=== PATIENT | male | born 1970 | race Caucasian/White ===

== ENCOUNTER 2016-08-10 23:37 | Emergency (ER) | payer OTHER ==
--- NOTE | ~2016-08-10 | CR72 ---
[facility] RADIOLOGY TEXT RESULTS PATIENT: KRISTIAN MOORE LOCATION: [facility] : 66 UNIT #: [id number] AGE: [address]: Bladimir Francis MD SEX: M ORDER DR: [id number] [facility] [address] [place], [place] [address] [id number] E MR#: [id number] Acc #: [id number] NAME: KRISTIAN MOORE. : 1970 SEX: M STUDY DATE/TIME: 08/11/2016 0:26 UNIT: [facility] ROOM: STUDY DESCRIPTION: CR Chest Single View Portable Attending Physician: Bladimir Francis M.D. Ordering Physician: Bladimir Francis M.D. Primary Care Physician: Primary Care Physician No MEDICAL IMAGING REPORT This report is preliminary unless electronic signature is present EXAM Chest x-ray 08/11/2016 HISTORY 45-year-old male in the ED complaining of 2-day history of left side chest pain, shortness of air and dizziness. Cough. TECHNIQUE AP portable chest x-ray. FINDINGS There was a small ill-defined nodular opacity in the right upper lobe. There was also marked enlargement of the right hilum and mild widening of the right mediastinal border above the hilum. The findings are concerning for thoracic adenopathy and possible right upper lobe lesion. CT examination of the chest with IV contrast is recommended for further evaluation. Lungs otherwise clear. Heart size normal. IMPRESSION 1. Findings concerning for right hilar and right middle mediastinal adenopathy and a possible right upper lobe pulmonary lesion. These findings are new since 04/12/2015. Recommend chest CT for further evaluation. Dictated by... Otf Macario M.D. THIS IS AN ELECTRONICALLY VERIFIED REPORT Otf Macario M.D. at 08/11/2016 9:55 PM RGW/to [facility] A [facility] RADIOLOGY TEXT RESULTS PATIENT: KRISTIAN MOORE LOCATION: [facility] : 66 UNIT #: [id number] AGE: [address]: Bladimir Francis MD SEX: M ORDER DR: TD: 08/11/2016 10:25 JOB #: [id number] MEDICAL IMAGING REPORT Page 1 of 1 COPY
--- NOTE | ~2016-08-10 | EKG ---
PATIENT: KRISTIAN MOORE UNIT #: [id number] Ventricular Rate: 97 BPM Atrial Rate: 97 BPM P-R Interval: 112 ms QRS Duration: 86 ms Q-T Interval: 336 ms QTC Calculation(Bezet): 426 ms P Erie: 59 degrees Calculated R Erie: 59 degrees Calculated T Erie: 72 degrees Diagnosis Line: Normal sinus rhythm Diagnosis Line: Normal ECG Diagnosis Line: No previous ECGs available Diagnosis Line: Confirmed by ANATOLIY RAMOS MD ([id number]) on Diagnosis Line: 08/11/2016 10:15:59 PM INTERPRETING MD: ASHER
--- NOTE | ~2016-08-10 | CT16 ---
[facility] A [facility] RADIOLOGY TEXT RESULTS PATIENT: KRISTIAN MOORE LOCATION: [facility] : 66 UNIT #: [id number] AGE: [address]: Bladimir Francis MD SEX: M ORDER DR: [id number] [facility] [address] [place], [place] [address] [id number] E MR#: [id number] Acc #: [id number] NAME: KRISTIAN MOORE. : 1970 SEX: M STUDY DATE/TIME: 08/11/2016 2:08 UNIT: [facility] ROOM: STUDY DESCRIPTION: CT Angio Chest for PE Attending Physician: Bladimir Francis M.D. Ordering Physician: Bladimir Francis M.D. Primary Care Physician: Primary Care Physician No MEDICAL IMAGING REPORT This report is preliminary unless electronic signature is present EXAM CT chest with contrast, pulmonary arteriography protocol, 08/11/2016 HISTORY 45-year-old male in the ED complaining of 2-day history of left side chest pain with shortness of air and cough. Abnormal chest x-ray tonight showing evidence of mediastinal and right hilar adenopathy and a right upper lobe nodular lesion. TECHNIQUE CT examination of the chest was performed with IV contrast using pulmonary arteriography protocol. 3-D CTA images of the pulmonary arteries were reformatted in multiple planes. This CT exam was performed with one or more of the following radiation dose reduction techniques: automatic exposure control, adjustment of mA and/or kV according to patient size, and iterative reconstruction. FINDINGS No pulmonary embolism is demonstrated. Thoracic aorta is normal in caliber. There is a 1.7 cm, oblong, well-circumscribed nodular opacity in the anterior segment right upper lobe. No additional pulmonary lesion is seen elsewhere within either lung. Bulky adenopathy is present in the right upper hilum and pretracheal middle mediastinum. The right upper hilar mass measures up to 4.5 cm. Largest upper pretracheal node measures about 2.6 cm, and the largest precarinal node measures about 2.4 cm. The consolation of findings is concerning for pulmonary malignancy with thoracic lymph node metastasis. There was no contralateral left hilar adenopathy. There was no pleural effusion. No chest wall lesion is seen. [facility] A [facility] of [facility] RADIOLOGY TEXT RESULTS PATIENT: KRISTIAN MOORE LOCATION: [facility] : 66 UNIT #: [id number] AGE: [address]: Bladimir Francis MD SEX: M ORDER DR: Limited images through the uppermost abdomen are unremarkable. IMPRESSION 1. No evidence of pulmonary embolism. Normal-caliber thoracic aorta. 2. 1.6 cm nodular lesion in the anterior segment right upper lobe. Bulky adenopathy in the right upper hilum and pretracheal middle mediastinum as detailed above. Pulmonary malignancy with thoracic lymph node metastasis is likely. 3. The remainder of the examination is negative. Dictated by... Otf Macario M.D. THIS IS AN ELECTRONICALLY VERIFIED REPORT Otf Macario M.D. at 08/11/2016 9:56 PM RGW/bruno TD: 08/11/2016 12:41 JOB #: [id number] MEDICAL IMAGING REPORT Page 1 of 1 COPY
[~2016-08-10 23:37] MED LIST: ACETAMINOPHEN PO; ACETAMINOPHEN650 M1 PO; ASPIR-TRIN325 MG PO; ASPIRIN325 M1 PO; ASPIRIN81 M1 PO; ASPIRINEC PO; ATENOLOL50 MG PO; BACTRIM DS TABL1 TA1 PO; BACTRIM DS TABL1 TAB PO; BAYER ASPIRIN325 M1 PO; BENTYL10 MG PO; BENTYL20 MG PO; CELEXA PO; CIPRO PO; COUMADIN7.5 MG PO; DICYCLOMINE HCL20 MG PO; FLAGYL PO; FLEXERIL PO; FLEXERIL10 MG PO; HCTZ PO; HYDROCODONE-APA1 T30 PO; K-DUR10 MEQ PO; KEFLEX500 MG PO; LEVAQUIN PO; LISINOPRIL10 MG PO; LISINOPRIL5 MG PO; LOMOTIL TABLET1 TAB PO; LORTAB 10-3251 EACH PO; LORTAB 10-5001 EACH PO; LORTAB 10/500 T1 TAB PO; LORTAB 5/500 TA1 TA1 PO; MEDROL DOSEPAK4 MG DOB; MEDROL DOSEPAK4 MG PO; MEDROL4 MG/DOSE- PO; METHIMAZOLE10 MG PO; METHIMAZOLE5 MG PO; METOPROLOL SUCC25 MG PO; METOPROLOL TAR25 MG PO; NAPROSYN500 MG PO; NEXIUM PO; NO MEDICATIONS; NORCO 10-325 TA1 TAB PO; OMEPRAZOLE40 MG PO; ORUDIS75 M1 PO; PEPCID AC20 M2 PO; PERCOCET 10/3251 TAB PO; PHENERGAN PO; PHENERGAN25 MG PO; PREDNISONE10 MG/DOSE PO; PRILOSEC PO; PRILOSEC20 MG PO; PRINIVIL5 MG PO; PROAIR HFA8.5 GM IH; PROPRANOLOL HCL10 MG PO; ROBAXIN500 MG PO; TAPAZOLE5 MG PO; TEMAZEPAM PO; ULTRAM PO; VICODIN 5/1 TAB 5/50 PO; VICODIN 5/500 T1 TAB PO; VOLTAREN50 MG PO; VOLTAREN75 MG PO; ZITHROMAX500 MG PO; ZOFRAN ODT4 MG SL; ZOFRAN PO; ZOLOFT PO; ZOLOFT100 MG PO; ZOLOFT50 MG PO
[2016-08-11 01:15] LABS: BASOPHIL# 0.1 X10e3 (0-0.3); BASOPHIL% 0.6 % (0-2.5); DIFF IND NO; EOSINOPHIL# 0.3 X10e3 (0-0.7); EOSINOPHIL% 3.5 % (0.0-7.0); HEMATOCRIT 43.7 % (38.0-50.0); HEMOGLOBIN 14.7 gm/dL (13.0-16.0); LYMPHOCYTE# 2.6 X10e3 (1.0-3.5); LYMPHOCYTE% 32.3 % (17.0-45.0); MEAN CELL VOLUME 90.8 FL (83-96); MEAN CORPUSCULAR HEMOGLOBIN 30.6 PG (28-34); MEAN CORPUSCULAR HGB CONC 33.7 g/dL (30-36); MEAN PLATELET VOLUME 8.4 FL (6.5-11.5); MONOCYTE# 0.5 X10e3 (0-1.0); MONOCYTE% 6.8 % (3.0-12.0); NEUTROPHIL# 4.6 X10e3 (1.5-7.1); NEUTROPHIL% 56.8 % (40-75); PLATELET COUNT 243 X10e3 (140-420); RED BLOOD COUNT 4.81 X10e (3.90-5.60); RED CELL DISTRIBUTION WIDTH 12.8 % (11.0-15.5); WHITE BLOOD COUNT 8.1 X10e3 (4.0-10.5)
[2016-08-11 01:21] LABS: POC - CKMB <1.0 ng/mL (0.0-7.9); POC - TROPONIN <0.05 ng/mL (<=0.05)
[2016-08-11 01:25] LABS: AMPHETAMINE POS (NEG); BARBITURATES NEG (NEG); BENZODIAZEPINES NEG (NEG); COCAINE NEG (NEG); MARIJUANA NEG (NEG); OPIATES NEG (NEG); TRICYCLIC ANTIDEPRESSANTS NEG (NEG); U METHADONE NEG (NEG)
[2016-08-11 01:30] LABS: INR 0.9; PARTIAL THROMBOPLASTIN TIME 24.3 SECONDS (23.5-31.3); PROTHROMBIN TIME (PATIENT) 9.5 SECONDS (9.6-11.5)
[2016-08-11 01:58] LABS: ALBUMIN SERUM 4.2 g/dL (3.5-5.0); BILIRUBIN, DIRECT 0.1 mg/dL (0.0-0.2); BILIRUBIN,INDIRECT 0.9 mg/dL (0.0-0.9); CALCIUM SERUM 9.2 mg/dL (8.4-10.2); CREATININE SERUM 0.5 mg/dL (0.6-1.4); GLOM FILT RATE Estimated 129.1 mL/min (>60); POTASSIUM 4.4 mmol/L (3.5-5.1); PROTEIN TOTAL SERUM 7.1 g/dL (6.0-8.3)
[2016-08-11 02:50] LABS: POC - CKMB 1.3 ng/mL (0.0-7.9); POC - TROPONIN <0.05 ng/mL (<=0.05)
[2016-09-03] MEDS ORDERED: ZOLOFT50 MG PO (11:30)
[2016-09-03] MEDS ORDERED: DICYCLOMINE HCL20 MG PO (11:31)
[2016-09-03] MEDS ORDERED: VOLTAREN75 MG PO (11:31)
[2016-09-03] MEDS ORDERED: METRONIDAZOLE PO (11:32)
[2016-09-03] MEDS ORDERED: OMEPRAZOLE20 M1 PO (11:33)
[2016-09-03] MEDS ORDERED: LEVAQUIN750 MG PO (11:33)
[2016-09-03] MEDS ORDERED: AMITRIPTYLINE H25 MG PO (11:34)
[2016-09-03] MEDS ORDERED: OXYCODONE-ACET1 EAC1 PO (11:44)
[2016-11-27] MEDS ORDERED: PERCOCET10 PO ×2 (09:14→09:16)
[2016-12-02] MEDS ORDERED: ATIVAN PO (12:22)
[2016-12-02] MEDS ORDERED: CARAFATE1 GM PO (12:22)
[2016-12-02] MEDS ORDERED: PROTONIX PO (12:22)
== END 2016-08-11 03:35 | disposition home or self-care (01) ==
LOC: CED 23:37
PROVIDERS: Emergency Medicine
DX: R07.89 Other chest pain (principal); R91.8 Other nonspecific abnormal finding of lung field; I10 Essential (primary) hypertension; F17.200 Nicotine dependence, unspecified, uncomplicated; Z79.01 Long term (current) use of anticoagulants; Z79.899 Other long term (current) drug therapy
CPT/HCPCS: 36415; 71010; 71275; 80048; 80076; 80307; 82553; 83880; 84484; 85025; 85610; 85730; 93005; 96361; 96374; 99284; J2550; Q9967

== ENCOUNTER 2016-08-18 21:51 | Emergency (ER) | payer OTHER ==
--- NOTE | ~2016-08-18 | EKG ---
PATIENT: KRISTIAN MOORE UNIT #: [id number] Ventricular Rate: 110 BPM Atrial Rate: 110 BPM P-R Interval: 112 ms QRS Duration: 86 ms Q-T Interval: 320 ms QTC Calculation(Bezet): 433 ms P Media: 62 degrees Calculated R Media: 60 degrees Calculated T Media: 67 degrees Diagnosis Line: Sinus tachycardia Diagnosis Line: Possible Left atrial enlargement Diagnosis Line: Borderline ECG Diagnosis Line: When compared with ECG of 10-AUG-2016 23:48, Diagnosis Line: No significant change was found Diagnosis Line: Confirmed by ANATOLIY RAMOS MD ([id number]) on Diagnosis Line: 08/19/2016 5:48:59 PM INTERPRETING MD: ASHER
--- NOTE | ~2016-08-18 | CR72 ---
[facility] A Service of [facility] RADIOLOGY TEXT RESULTS PATIENT: KRISTIAN MOORE LOCATION: [facility] : 66 UNIT #: [id number] AGE: [address]: Reynaldo Xiong MD SEX: M ORDER DR: [id number] [facility] [address] [place], [place] [address] [id number] E MR#: [id number] Acc #: [id number] NAME: KRISTIAN MOORE. : 1970 SEX: M STUDY DATE/TIME: 08/18/2016 22:42 UNIT: [facility] ROOM: STUDY DESCRIPTION: CR Chest Single View Portable Attending Physician: Reynaldo Xiong M.D. Ordering Physician: Reynaldo Xiong M.D. Primary Care Physician: No Primary Care Physician MEDICAL IMAGING REPORT This report is preliminary unless electronic signature is present EXAM Portable chest 08/18/2016 HISTORY Chest pain and dizziness for 3 days with shortness of air. Symptoms are worsening. COMPARISON 08/11/2016 FINDINGS A portable view of the chest is obtained. The heart size and vascularity are normal. The right hilum is abnormally prominent with an area measuring at least 3.7 cm in diameter in that region. There is a possible right upper lobe nodule or mass measuring 2 cm in diameter. The patient had a CT chest just a week ago which showed adenopathy in the right hilum and a right upper lobe mass was noted. IMPRESSION The right upper lobe mass and right hilar enlargement due to adenopathy is unchanged from the recent studies from last week including a chest CT. There is no infiltrate visible. Dictated by... Feliz Harmon M.D. THIS IS AN ELECTRONICALLY VERIFIED REPORT Feliz Harmon M.D. at 08/19/2016 12:39 PM FEL/fahad [facility] A Service of [facility] RADIOLOGY TEXT RESULTS PATIENT: KRISTIAN MOORE LOCATION: [facility] : 66 UNIT #: [id number] AGE: [address]: Reynaldo Xiong MD SEX: M ORDER DR: TD: 08/19/2016 09:27 JOB #: [id number] MEDICAL IMAGING REPORT Page 1 of 1 COPY
--- NOTE | ~2016-08-18 | CT16 ---
[facility] A Service of [facility] & [facility] RADIOLOGY TEXT RESULTS PATIENT: KRISTIAN MOORE LOCATION: [facility] : 66 UNIT #: [id number] AGE: [address]: Reynaldo Xiong MD SEX: M ORDER DR: [id number] [facility] [address] [place], [place] [address] [id number] E MR#: [id number] Acc #: [id number] NAME: KRISTIAN MOORE. : 1970 SEX: M STUDY DATE/TIME: 08/19/2016 0:14 UNIT: [facility] ROOM: STUDY DESCRIPTION: CT Angio Chest for PE Attending Physician: Reynaldo Xiong M.D. Ordering Physician: Reynaldo Xiong M.D. Primary Care Physician: No Primary Care Physician MEDICAL IMAGING REPORT This report is preliminary unless electronic signature is present EXAM CT scan of the chest with pulmonary embolus protocol. HISTORY Shortness of air and chest pain for 3 days. New diagnosis of lung cancer. COMPARISON 08/11/2016 TECHNIQUE The patient was given 100 mL of Isovue-370 and spiral imaging was performed through the chest. 3-D reconstructions of the pulmonary arteries were generated. This CT exam was performed with one or more of the following radiation dose reduction techniques: automatic exposure control, adjustment of mA and/or kV according to patient size, and iterative reconstruction. FINDINGS The visualized thyroid gland is normal. The aorta is normal in size and there is no dissection. There is no visible pulmonary embolus. There is a right upper lobe mass measuring 1.4 cm in diameter with bulky mediastinum and hilar adenopathy. The right hilar adenopathy is 4.6 cm in diameter. There is right pretracheal node measuring 3.9 cm in diameter and there is a right paratracheal node measuring 3.0 cm in diameter. The visualized portions of the upper abdomen are normal. The rest of the lungs are clear. IMPRESSION 1. No CT evidence of pulmonary embolus. 2. No change in the 14 mm right upper lobe mass with large adenopathy in the right paratracheal region and right hilar region consistent with STS. [facility] A Service of [facility] & [facility] RADIOLOGY TEXT RESULTS PATIENT: KRISTIAN MOORE LOCATION: [facility] : [birth year] UNIT #: [id number] AGE: [address]: Reynaldo Xiong MD SEX: M ORDER DR: lung cancer. 3. The lungs are otherwise clear. Dictated by... Feliz Harmon M.D. THIS IS AN ELECTRONICALLY VERIFIED REPORT Feliz Harmon M.D. at 08/19/2016 12:38 PM CHAR/bahman TD: 08/19/2016 09:39 JOB #: [id number] MEDICAL IMAGING REPORT Page 1 of 1 COPY
[2016-08-18 23:24] LABS: BASOPHIL# 0.1 X10e3 (0-0.3); BASOPHIL% 0.6 % (0-2.5); EOSINOPHIL# 0.3 X10e3 (0-0.7); EOSINOPHIL% 3.1 % (0.0-7.0); HEMATOCRIT 44.2 % (38.0-50.0); HEMOGLOBIN 14.6 gm/dL (13.0-16.0); LYMPHOCYTE# 2.7 X10e3 (1.0-3.5); LYMPHOCYTE% 30.6 % (17.0-45.0); MEAN CELL VOLUME 90.2 FL (83-96); MEAN CORPUSCULAR HEMOGLOBIN 29.8 PG (28-34); MEAN CORPUSCULAR HGB CONC 33.1 g/dL (30-36); MEAN PLATELET VOLUME 8.7 FL (6.5-11.5); MONOCYTE# 0.6 X10e3 (0-1.0); MONOCYTE% 6.7 % (3.0-12.0); NEUTROPHIL# 5.3 X10e3 (1.5-7.1); PLATELET COUNT 277 X10e3 (140-420); RED CELL DISTRIBUTION WIDTH 12.8 % (11.0-15.5); WHITE BLOOD COUNT 8.9 X10e3 (4.0-10.5)
[2016-08-18 23:26] LABS: POC - CKMB 1.4 ng/mL (0.0-7.9); POC - TROPONIN <0.05 ng/mL (<=0.05)
[2016-08-18 23:27] LABS: DIFF IND NO
[2016-08-18 23:38] LABS: INR 0.9; PROTHROMBIN TIME (PATIENT) 9.6 SECONDS (9.6-11.5)
[2016-08-18 23:45] LABS: ALBUMIN SERUM 4.1 g/dL (3.5-5.0); ALKALINE PHOSPHATASE 74 U/L (32-92); ALT (SGPT) 32 U/L (10-40); AST (SGOT) 24 U/L (10-42); BILIRUBIN,TOTAL 0.6 mg/dL (0.2-2.0); BLOOD UREA NITROGEN 17 mg/dL (9-23); BUN/CREATININE RATIO 21.25; CALCIUM SERUM 9.2 mg/dL (8.4-10.2); CARBON DIOXIDE 23 mmol/L (22-31); CHLORIDE 108 mmol/L (100-111); CREATININE SERUM 0.8 mg/dL (0.6-1.4); GLOM FILT RATE Estimated 106.4 mL/min (>60); GLUCOSE FASTING 107 mg/dL (70-110); POTASSIUM 3.6 mmol/L (3.5-5.1); SODIUM 137 mmol/L (135-145)
[2016-08-18 23:46] LABS: BILIRUBIN, DIRECT <0.1 mg/dL (0.0-0.2); BILIRUBIN,INDIRECT 0.5 mg/dL (0.0-0.9)
[2016-08-19 01:38] LABS: POC - CKMB <1.0 ng/mL (0.0-7.9); POC - TROPONIN <0.05 ng/mL (<=0.05)
[2016-09-03] MEDS ORDERED: ZOLOFT50 MG PO (11:30)
[2016-09-03] MEDS ORDERED: DICYCLOMINE HCL20 MG PO (11:31)
[2016-09-03] MEDS ORDERED: VOLTAREN75 MG PO (11:31)
[2016-09-03] MEDS ORDERED: METRONIDAZOLE PO (11:32)
[2016-09-03] MEDS ORDERED: OMEPRAZOLE20 M1 PO (11:33)
[2016-09-03] MEDS ORDERED: LEVAQUIN750 MG PO (11:33)
[2016-09-03] MEDS ORDERED: AMITRIPTYLINE H25 MG PO (11:34)
[2016-09-03] MEDS ORDERED: OXYCODONE-ACET1 EAC1 PO (11:44)
[2016-11-27] MEDS ORDERED: PERCOCET10 PO ×2 (09:14→09:16)
[2016-12-02] MEDS ORDERED: ATIVAN PO (12:22)
[2016-12-02] MEDS ORDERED: CARAFATE1 GM PO (12:22)
[2016-12-02] MEDS ORDERED: PROTONIX PO (12:22)
== END 2016-08-19 02:08 | disposition home or self-care (01) ==
LOC: CED 21:51
PROVIDERS: Emergency Medicine
DX: J44.1 Chronic obstructive pulmonary disease with (acute) exacerbation (principal); C34.90 Malignant neoplasm of unspecified part of unspecified bronchus or lung; K21.9 Gastro-esophageal reflux disease without esophagitis; F32.9 Major depressive disorder, single episode, unspecified; F17.210 Nicotine dependence, cigarettes, uncomplicated; Z79.01 Long term (current) use of anticoagulants; Z79.899 Other long term (current) drug therapy
CPT/HCPCS: 36415; 71010; 71275; 80048; 80076; 82553; 83880; 84484; 85025; 85610; 87040; 93005; 94640; 96374; 99285; J1170; J2270; J2405; Q9967

== ENCOUNTER 2016-08-29 12:17 | Emergency (ER) | payer OTHER ==
--- NOTE | ~2016-08-29 | CT2 ---
[facility] A Service of [facility] RADIOLOGY TEXT RESULTS PATIENT: KRISTIAN MOORE LOCATION: [facility] : [birth year] UNIT #: [id number] AGE: [address]: Shakeel Worthington MD SEX: M ORDER DR: [id number] [place] [id number] [facility] [place], [place] [address] [id number] E MR#: [id number] Acc #: [id number] NAME: KRISTIAN MOORE : 1970 SEX: M STUDY DATE/TIME: 08/29/2016 15:31 UNIT: [facility] ROOM: STUDY DESCRIPTION: CT Abd and Pelv W Cont Attending Physician: Shakeel Worthington M.D. Ordering Physician: Jean-Pierre Stiles M.D. Primary Care Physician: Berry Short Jr., A.P.R.N. MEDICAL IMAGING REPORT This report is preliminary unless electronic signature is present EXAM CT scan of the abdomen and pelvis with contrast INDICATION Bloody stool since this morning. He was recently diagnosed with lung cancer [address] of the abdomen and pelvis was performed following the administration of oral and IV contrast. Coronal and sagittal reformatted images were obtained. This CT exam was performed with one or more of the following radiation dose reduction techniques: automatic exposure control, adjustment of mA and/or kV according to patient size, and iterative reconstruction. Comparison is made with chest CT from 08/19/[address] of the abdomen and pelvis from 04/12/2015. FINDINGS Noted in the lung bases is a partially imaged mass within the right hilar region consistent with the patient's recent diagnosis of lung cancer. Please refer to recently performed chest CT 08/19/2016 for complete details. The liver is unremarkable. The gallbladder is unremarkable. The spleen is unremarkable. The kidneys, adrenal glands and pancreas are unremarkable. Is a swirling appearance to the mesentery not seen on the previous study which probably indicates some mesenteric rotation but there is no evidence for any bowel obstruction or any vascular compromise. There are some shotty mesenteric lymph nodes with some mesenteric stranding. There is no evidence for any bowel wall thickening. [facility] A Service of [facility] & [facility] RADIOLOGY TEXT RESULTS PATIENT: KRISTIAN MOORE LOCATION: [facility] : [birth year] UNIT #: [id number] AGE: [address]: Shakeel Worthington MD SEX: M ORDER DR: PELVIS: The patient appears to have had a previous appendectomy. There is some thickening noted in the region of the hepatic flexure of the colon which may indicate colitis. Underlying malignancy cannot entirely be excluded. Correlate clinically with symptoms. Further evaluation with colonoscopy may be helpful if the patient does not have any symptoms of colitis. No free fluid. Remainder of the pelvis is unremarkable. Bone windows are unremarkable. IMPRESSION 1. There is some focal thickening of the hepatic flexure region of the colon. The differential diagnosis includes a focal area of colitis versus possible underlying malignancy. Correlate clinically with symptoms. Correlation with colonoscopy may also be helpful, particularly if the patient is not experiencing any symptoms of colitis. 2. There is some twisting of the mesentery with some mesenteric stranding and some shotty lymph nodes. There is no evidence for any bowel wall thickening, bowel obstruction or any vascular compromise. 3. Noted in the lung bases is a right hilar mass consistent with the patient's history of lung cancer. Dictated by... Rustam Osullivan M.D. THIS IS AN ELECTRONICALLY VERIFIED REPORT Rustam Osullivan M.D. at 08/30/2016 7:20 AM STONE/kishore TD: 08/29/2016 22:11 JOB #: [id number] MEDICAL IMAGING REPORT Page 1 of 1 COPY
[2016-08-29 13:40] LABS: BASOPHIL% 0.3 % (0-2.5); EOSINOPHIL# 0.3 X10e3 (0-0.7); EOSINOPHIL% 3.2 % (0.0-7.0); HEMATOCRIT 39.5 % (38.0-50.0); HEMOGLOBIN 13.1 gm/dL (13.0-16.0); LYMPHOCYTE% 21.8 % (17.0-45.0); MEAN CELL VOLUME 91.3 FL (83-96); MEAN CORPUSCULAR HEMOGLOBIN 30.3 PG (28-34); MEAN CORPUSCULAR HGB CONC 33.2 g/dL (30-36); MEAN PLATELET VOLUME 8.6 FL (6.5-11.5); MONOCYTE# 0.7 X10e3 (0-1.0); MONOCYTE% 7.7 % (3.0-12.0); NEUTROPHIL# 6.1 X10e3 (1.5-7.1); PLATELET COUNT 276 X10e3 (140-420); RED BLOOD COUNT 4.33 X10e (3.90-5.60); RED CELL DISTRIBUTION WIDTH 13.3 % (11.0-15.5); WHITE BLOOD COUNT 9.1 X10e3 (4.0-10.5)
[2016-08-29 13:46] LABS: DIFF IND NO
[2016-08-29 14:00] LABS: PARTIAL THROMBOPLASTIN TIME 25.6 SECONDS (23.5-31.3); PROTHROMBIN TIME (PATIENT) 10.7 SECONDS (10.0-11.7)
[2016-08-29 14:09] LABS: ALBUMIN SERUM 4.6 g/dL (3.5-5.0); BILIRUBIN, DIRECT 0.1 mg/dL (0.0-0.2); BILIRUBIN,INDIRECT 0.6 mg/dL (0.0-0.9); BILIRUBIN,TOTAL 0.7 mg/dL (0.2-2.0); BUN/CREATININE RATIO 16.25; CALCIUM SERUM 9.7 mg/dL (8.4-10.2); CREATININE SERUM 0.8 mg/dL (0.6-1.4); GLOM FILT RATE Estimated 106.4 mL/min (>60); POTASSIUM 3.6 mmol/L (3.5-5.1); PROTEIN TOTAL SERUM 7.4 g/dL (6.0-8.3)
[2016-09-03] MEDS ORDERED: ZOLOFT50 MG PO (11:30)
[2016-09-03] MEDS ORDERED: DICYCLOMINE HCL20 MG PO (11:31)
[2016-09-03] MEDS ORDERED: VOLTAREN75 MG PO (11:31)
[2016-09-03] MEDS ORDERED: METRONIDAZOLE PO (11:32)
[2016-09-03] MEDS ORDERED: OMEPRAZOLE20 M1 PO (11:33)
[2016-09-03] MEDS ORDERED: LEVAQUIN750 MG PO (11:33)
[2016-09-03] MEDS ORDERED: AMITRIPTYLINE H25 MG PO (11:34)
[2016-09-03] MEDS ORDERED: OXYCODONE-ACET1 EAC1 PO (11:44)
[2016-11-27] MEDS ORDERED: PERCOCET10 PO ×2 (09:14→09:16)
[2016-12-02] MEDS ORDERED: CARAFATE1 GM PO (12:22)
[2016-12-02] MEDS ORDERED: ATIVAN PO (12:22)
[2016-12-02] MEDS ORDERED: PROTONIX PO (12:22)
== END 2016-08-29 16:00 | disposition home or self-care (01) ==
LOC: CED 12:17
PROVIDERS: Emergency Medicine
DX: K62.5 Hemorrhage of anus and rectum (principal); F17.200 Nicotine dependence, unspecified, uncomplicated
CPT/HCPCS: 36415; 74177; 80048; 80076; 85025; 85610; 85730; 86850; 86900; 86901; 96361; 96374; 96375; 99283; J0500; J1170; J1200; J2405; Q9967

== ENCOUNTER 2016-08-30 09:35 | Emergency (ER) | payer OTHER ==
[~2016-08-30 09:35] MED LIST changes: -AMITRIPTYLINE H25 MG PO; -ATIVAN PO; -CARAFATE1 GM PO; -DEXAMETHASONE4 M1 PO; -LEVAQUIN750 MG PO; -LIDOCAINE HCL 220 ML PO; -MAGNESIUM400 M1 PO; -METRONIDAZOLE PO; -MS CONTIN30 MG PO; -OMEPRAZOLE20 M1 PO; -OMNICEF300 MG PO; -OXYCODONE-ACET1 EAC1 PO; -PERCOCET10 PO; -PHENERGAN25 M1 PO; -PROTONIX PO
[2016-09-03] MEDS ORDERED: ZOLOFT50 MG PO (11:30)
[2016-09-03] MEDS ORDERED: DICYCLOMINE HCL20 MG PO (11:31)
[2016-09-03] MEDS ORDERED: VOLTAREN75 MG PO (11:31)
[2016-09-03] MEDS ORDERED: METRONIDAZOLE PO (11:32)
[2016-09-03] MEDS ORDERED: OMEPRAZOLE20 M1 PO (11:33)
[2016-09-03] MEDS ORDERED: LEVAQUIN750 MG PO (11:33)
[2016-09-03] MEDS ORDERED: AMITRIPTYLINE H25 MG PO (11:34)
[2016-09-03] MEDS ORDERED: OXYCODONE-ACET1 EAC1 PO (11:44)
[2016-11-27] MEDS ORDERED: PERCOCET10 PO ×2 (09:14→09:16)
[2016-12-02] MEDS ORDERED: PROTONIX PO (12:22)
[2016-12-02] MEDS ORDERED: CARAFATE1 GM PO (12:22)
[2016-12-02] MEDS ORDERED: ATIVAN PO (12:22)
== END 2016-08-30 12:05 | disposition home or self-care (01) ==
LOC: CED 09:35
DX: L29.9 Pruritus, unspecified (principal); T50.8X5A Adverse effect of diagnostic agents, initial encounter; K21.9 Gastro-esophageal reflux disease without esophagitis; F17.200 Nicotine dependence, unspecified, uncomplicated; F32.9 Major depressive disorder, single episode, unspecified; Z85.118 Personal history of other malignant neoplasm of bronchus and lung
CPT/HCPCS: 36415; 96372; 96374; 96375; 99282; J1200; J2270; J2930

== ENCOUNTER → 2016-08-30 | Outpatient (CLI) | payer OTHER ==
[~2016-08-30] MED LIST changes: +AMITRIPTYLINE H25 MG PO; +ATIVAN PO; +CARAFATE1 GM PO; +DEXAMETHASONE4 M1 PO; +LEVAQUIN750 MG PO; +LIDOCAINE HCL 220 ML PO; +MAGNESIUM400 M1 PO; +METRONIDAZOLE PO; +MS CONTIN30 MG PO; +OMEPRAZOLE20 M1 PO; +OMNICEF300 MG PO; +OXYCODONE-ACET1 EAC1 PO; +PERCOCET10 PO; +PHENERGAN25 M1 PO; +PROTONIX PO
--- NOTE | ~2016-08-30 | MR17 ---
[facility] A Service of [facility] & [facility] RADIOLOGY TEXT RESULTS PATIENT: KRISTIAN MOORE LOCATION: [facility] : 66 UNIT #: [id number] AGE: [address]: Jhonathan Kumar MD SEX: M ORDER DR: [id number] [facility] [address] [place], [place] [address] [id number] O MR#: [id number] Acc #: [id number] NAME: KRISTIAN MOORE. : 1970 SEX: M STUDY DATE/TIME: 08/30/2016 8:41 UNIT: [facility] ROOM: STUDY DESCRIPTION: MR Brain WWo Contrast Attending Physician: Jhonathan Kumar M.D., Ph.D. Referring Physician: Jhonathan Kumar M.D., Ph.D. Ordering Physician: Jhonathan Kumar M.D., Ph.D. Primary Care Physician: Berry Short Jr., A.P.R.N. MRI CENTER REPORT This report is preliminary unless electronic signature is present. EXAM MRI of the brain with and without contrast dated 08/30/2016. COMPARISON MRI brain with and without contrast dated 09/22/2016. HISTORY Lung cancer diagnosed 2 weeks ago. Screening for metastasis. History of dizziness and headache today and is relatively new. TECHNIQUE Multisequence multiplanar imaging of the brain was obtained with and without contrast. eGFR measured greater than 60. 14 mL of MultiHance was administered intravenously. FINDINGS The patient did not give any history of metal in his head but there is a susceptibility artifact noted in the left frontal region in the region of the scalp and adjacent skull. As the patient did not have any symptoms in order to continue and finish this study to call for this treatment, attempts were made with caution to continue the study. Patient was given that it is a baseball disc signal and there are very early minimal shoes during imaging. Patient tolerated the whole procedure well without any difficulty. This artifact was not seen in the prior MRI brain from 10 years ago. Patient did not know from where it had come. No acute intracranial hemorrhage, space-occupying mass, mass effect, midline shift or hydrocephalus. Scattered, less than 1 cm, multiple hyperintense T2-signal lesions are noted in the subcortical and periventricular white matter. Some lesions are confluent in the periventricular regions, particularly the left frontal lobe. Thick slices through the sella with the pituitary gland, pineal region, upper cervical spine and the internal auditory canals with the inner ear structures are STS. [facility] A Service of [facility] RADIOLOGY TEXT RESULTS PATIENT: KRISTIAN MOORE LOCATION: [facility] : 66 UNIT #: [id number] AGE: [address]: Jhonathan Kumar MD SEX: M ORDER DR: grossly unremarkable. Minimal bilateral mastoid mucosal thickening is seen. Mild S-shaped nasal septal deviation is noted with a prominent component to the right in the posterior aspect. Associated spur is also noted in this region. Mild right maxillary and right ethmoid sinus mucosal thickening are noted. Bifrontal sinuses appear to be predominantly aplastic. Imaged orbits and the ocular structures are within normal limits. Postcontrast sequences are limited in evaluation given the lack of adequate enhancement. These are delayed images. IMPRESSION 1. Postcontrast sequences are limited in evaluation as they are delayed in the timing of obtaining the images post-contrast. This limits evaluation for subtle metastatic foci. 2. No large space-occupying solid mass is seen. 3. Scattered nonspecific hyperintense T2-signal lesions are noted in the supratentorial white matter, likely related to lfue-wo-nlzexoaz chronic microvascular ischemic change. Nonspecific. Dictated by... Alicia Velazquez M.D. THIS IS AN ELECTRONICALLY VERIFIED REPORT Alicia Velazquez M.D. at 09/03/2016 9:00 PM CPR/pcl TD: 08/30/2016 15:42 JOB #: [id number] MRI CENTER REPORT Page 1 of 1 COPY
[2016-08-30 08:29] LABS: HEMATOCRIT 40.5 % (38.0-50.0); HEMOGLOBIN 13.5 gm/dL (13.0-16.0); MEAN CORPUSCULAR HEMOGLOBIN 30.3 PG (28-34); MEAN CORPUSCULAR HGB CONC 33.3 g/dL (30-36); MEAN PLATELET VOLUME 8.2 FL (6.5-11.5); RED BLOOD COUNT 4.45 X10e (3.90-5.60); RED CELL DISTRIBUTION WIDTH 13.3 % (11.0-15.5); WHITE BLOOD COUNT 8.4 X10e3 (4.0-10.5)
[2016-08-30 08:54] LABS: INR 0.9; PARTIAL THROMBOPLASTIN TIME 24.6 SECONDS (23.5-31.3); PROTHROMBIN TIME (PATIENT) 10.3 SECONDS (10.0-11.7)
== END | disposition home or self-care (01) ==
LOC: CSSDAY 07:40 → CMRI 07:40
PROVIDERS: Internal Medicine Hematology & Oncology
DX: C34.90 Malignant neoplasm of unspecified part of unspecified bronchus or lung (principal); R90.82 White matter disease, unspecified
CPT/HCPCS: 36415; 70553; 85027; 85610; 85730; A9577

== ENCOUNTER → 2016-09-04 | Outpatient (CLI) | payer OTHER ==
[~2016-09-04] MED LIST changes: +AMITRIPTYLINE H25 MG PO; +ATIVAN PO; +CARAFATE1 GM PO; +DEXAMETHASONE4 M1 PO; +LEVAQUIN750 MG PO; +LIDOCAINE HCL 220 ML PO; +MAGNESIUM400 M1 PO; +METRONIDAZOLE PO; +MS CONTIN30 MG PO; +OMEPRAZOLE20 M1 PO; +OMNICEF300 MG PO; +OXYCODONE-ACET1 EAC1 PO; +PERCOCET10 PO; +PHENERGAN25 M1 PO; +PROTONIX PO
--- NOTE | ~2016-09-04 | XA91 ---
[facility] A Service of [facility] & [facility] RADIOLOGY TEXT RESULTS PATIENT: KRISTIAN MOORE LOCATION: [facility] : 66 UNIT #: [id number] AGE: [address]: Jhonathan Kumar MD SEX: M ORDER DR: [id number] [facility] [address] [place], [place] [address] [id number] O MR#: [id number] Acc #: [id number] NAME: KRISTIAN MOORE : 1970 SEX: M STUDY DATE/TIME: 09/04/2016 8:56 UNIT: [facility] ROOM: STUDY DESCRIPTION: XA CVC Tunneled W Port Attending Physician: Jhonathan Kumar M.D., Ph.D. Ordering Physician: Jhonathan Kumar M.D., Ph.D. Primary Care Physician: Berry Short Jr., A.P.R.N. MEDICAL IMAGING REPORT This report is preliminary unless electronic signature is present EXAM MediPort placement. INDICATION Lung cancer. The patient requires IV access for chemotherapy. PROCEDURE The procedure was explained to the patient including risks, benefits, potential complications, potential for alternate forms of treatment. Informed consent was obtained and prior to initiating the procedure, a formal time-out procedure was performed. Using all elements of maximum sterile barrier technique. Including hand hygiene, caps, sterile gowns, and gloves and masks, the right neck and chest were prepped with 2% chlorhexidine for cutaneous antisepsis and covered with a large sterile sheet. The ultrasound probe was covered with a sterile probe cover and sterile gel was applied. Real-time sterile ultrasound guidance was used to localize the right internal jugular vein which was found to be patent and compressible. Hard copy ultrasound image was obtained. After local anesthesia with 1% Xylocaine, the vein was punctured using real-time sterile ultrasound guidance and an 0.018 guidewire was advanced into the superior vena cava. Under fluoroscopic guidance, a micropuncture sheath was placed and a J-wire was advanced into the inferior vena cava. At this point, I turned my attention to creation of the port pocket. Skin and subcutaneous tissues of the right anterolateral chest wall were anesthetized with buffered lidocaine and lidocaine with epinephrine. A small skin incision was made, port pocket was created using a combination of blunt and sharp dissection. Port was seated within the pocket and secured using two 3-0 Vicryl sutures. Catheter was then tunneled up through the right anterolateral chest wall to the insertion site at the neck. Peel-away sheath was advanced over the wire. The catheter was measured and trimmed and was advanced over the wire and positioned within the superior vena cava. Following placement of STS. [facility] A Service of [facility] RADIOLOGY TEXT RESULTS PATIENT: KRISTIAN MOORE LOCATION: [facility] : 66 UNIT #: [id number] AGE: [address]: Jhonathan Kumar MD SEX: M ORDER DR: the catheter, it flushed and aspirated easily. Its position was confirmed with a radiographic image. Deep layer of the port pocket was closed using interrupted 3-0 Vicryl sutures and a running 4-0 Monocryl suture was used to close the skin. A single 4-0 Monocryl suture was applied to the insertion site at the neck. Dermabond was applied to both wounds to act as a dressing. Moderate sedation was provided to the patient. I supervised the IVR nurse and monitored the patient's vital signs for a total of 30 minutes of face to face time. Total fluoroscopy time was 0.1 minutes. A single fluoroscopic image was obtained. AK was 6 mGy. IMPRESSION Technically successful placement of a right internal jugular vein MediPort which terminates within the superior vena cava. This catheter is ready for immediate use. Dictated by... Lacey Bruan M.D. THIS IS AN ELECTRONICALLY VERIFIED REPORT Lacey Braun M.D. at 09/05/2016 5:11 PM AFF/bahman TD: 09/05/2016 10:16 JOB #: [id number] MEDICAL IMAGING REPORT Page 1 of 1 COPY
[2016-09-04 07:36] LABS: HEMATOCRIT 46.1 % (38.0-50.0); HEMOGLOBIN 15.1 gm/dL (13.0-16.0); MEAN CELL VOLUME 91.5 FL (83-96); MEAN CORPUSCULAR HGB CONC 32.8 g/dL (30-36); MEAN PLATELET VOLUME 8.2 FL (6.5-11.5); RED BLOOD COUNT 5.04 X10e (3.90-5.60); RED CELL DISTRIBUTION WIDTH 13.4 % (11.0-15.5); WHITE BLOOD COUNT 9.1 X10e3 (4.0-10.5)
[2016-09-04 07:50] LABS: PARTIAL THROMBOPLASTIN TIME 24.5 SECONDS (23.5-31.3); PROTHROMBIN TIME (PATIENT) 10.9 SECONDS (10.0-11.7)
== END | disposition home or self-care (01) ==
LOC: CIVR 06:47
PROVIDERS: Internal Medicine Hematology & Oncology
DX: C34.90 Malignant neoplasm of unspecified part of unspecified bronchus or lung (principal); Z45.2 Encounter for adjustment and management of vascular access device; R59.0 Localized enlarged lymph nodes; F17.200 Nicotine dependence, unspecified, uncomplicated; Z79.899 Other long term (current) drug therapy; Z79.891 Long term (current) use of opiate analgesic; Z91.041 Radiographic dye allergy status; Z87.09 Personal history of other diseases of the respiratory system
CPT/HCPCS: 36415; 76937; 77001; 85027; 85610; 85730; C1788; C1894; J0690; J1642; J2250; J3010

== ENCOUNTER 2016-09-18 18:28 | Emergency (ER) | payer OTHER ==
--- NOTE | ~2016-09-18 | CR72 ---
[facility] A Service of [facility] RADIOLOGY TEXT RESULTS PATIENT: KRISTIAN MOORE LOCATION: [facility] : [birth year] UNIT #: [id number] AGE: [address]: Bladimir Francis MD SEX: M ORDER DR: [id number] [facility] [address] [place], [place] [address] [id number] E MR#: [id number] Acc #: [id number] NAME: KRISTIAN MOORE : 1970 SEX: M STUDY DATE/TIME: 09/18/2016 20:42 UNIT: [facility] ROOM: STUDY DESCRIPTION: CR Chest Single View Portable Attending Physician: Bladimir Francis M.D. Ordering Physician: Bladimir Francis M.D. Primary Care Physician: Jhonathan Kumar M.D., Ph.D. MEDICAL IMAGING REPORT This report is preliminary unless electronic signature is present EXAM Portable chest, 09/18/2016 HISTORY Chest pain beginning today after chemotherapy. Lung carcinoma. Smoking history for 25 years. FINDINGS The heart is normal in size. Adenopathy in the right hilum and right paratracheal region is unchanged compared with 08/18/2016. Previously noted 2 cm nodule in the right upper lobe is not visualized and may be obscured by the MediPort catheter. The central line tip is in the superior vena cava. There is no pneumothorax. Lungs are emphysematous. There are no pleural effusions. IMPRESSION 1. Right hilar and right paratracheal adenopathy is unchanged compared with 08/18/2016. Previously noted right upper lobe nodule is not currently visualized and may be obscured by the patient's right internal jugular approach MediPort catheter. 2. COPD. Dictated by... De Posey M.D. THIS IS AN ELECTRONICALLY VERIFIED REPORT De Posey M.D. at 09/19/2016 2:27 PM SAADIA/kishore TD: 09/18/2016 22:36 JOB #: [id number] [facility] A Service of [facility] RADIOLOGY TEXT RESULTS PATIENT: KRISTIAN MOORE LOCATION: [facility] #: [id number] : [birth year] UNIT #: [id number] AGE: [address]: Bladimir Francis MD SEX: M ORDER DR: MEDICAL IMAGING REPORT Page 1 of 1 COPY
[~2016-09-18 18:28] MED LIST changes: -ATIVAN PO; -CARAFATE1 GM PO; -DEXAMETHASONE4 M1 PO; -LIDOCAINE HCL 220 ML PO; -MAGNESIUM400 M1 PO; -MS CONTIN30 MG PO; -OMNICEF300 MG PO; -PERCOCET10 PO; -PHENERGAN25 M1 PO; -PROTONIX PO
[2016-09-18 21:13] LABS: BASOPHIL% 0.3 % (0-2.5); HEMATOCRIT 42.3 % (38.0-50.0); HEMOGLOBIN 13.9 gm/dL (13.0-16.0); LYMPHOCYTE# 0.8 X10e3 (1.0-3.5); LYMPHOCYTE% 7.7 % (17.0-45.0); MEAN CELL VOLUME 91.5 FL (83-96); MEAN CORPUSCULAR HEMOGLOBIN 30.1 PG (28-34); MEAN CORPUSCULAR HGB CONC 32.9 g/dL (30-36); MEAN PLATELET VOLUME 8.3 FL (6.5-11.5); MONOCYTE# 0.2 X10e3 (0-1.0); MONOCYTE% 2.3 % (3.0-12.0); NEUTROPHIL# 8.9 X10e3 (1.5-7.1); NEUTROPHIL% 89.7 % (40-75); PLATELET COUNT 305 X10e3 (140-420); RED BLOOD COUNT 4.62 X10e (3.90-5.60); RED CELL DISTRIBUTION WIDTH 13.5 % (11.0-15.5); WHITE BLOOD COUNT 9.9 X10e3 (4.0-10.5)
[2016-09-18 21:19] LABS: DIFF IND NO
[2016-09-18 21:34] LABS: ALBUMIN SERUM 4.1 g/dL (3.5-5.0); BILIRUBIN, DIRECT 0.1 mg/dL (0.0-0.2); BILIRUBIN,INDIRECT 0.6 mg/dL (0.0-0.9); BILIRUBIN,TOTAL 0.7 mg/dL (0.2-2.0); BUN/CREATININE RATIO 47.5; CALCIUM SERUM 9.1 mg/dL (8.4-10.2); CREATININE SERUM 0.4 mg/dL (0.6-1.4); GLOM FILT RATE Estimated 141.5 mL/min (>60); POTASSIUM 4.4 mmol/L (3.5-5.1)
[2016-11-27] MEDS ORDERED: PERCOCET10 PO ×2 (09:14→09:16)
[2016-12-02] MEDS ORDERED: ATIVAN PO (12:22)
[2016-12-02] MEDS ORDERED: CARAFATE1 GM PO (12:22)
[2016-12-02] MEDS ORDERED: PROTONIX PO (12:22)
== END 2016-09-19 00:34 | disposition home or self-care (01) ==
LOC: CED 18:28
PROVIDERS: Emergency Medicine
DX: R10.9 Unspecified abdominal pain (principal); C34.91 Malignant neoplasm of unspecified part of right bronchus or lung; F17.210 Nicotine dependence, cigarettes, uncomplicated; I10 Essential (primary) hypertension; F32.9 Major depressive disorder, single episode, unspecified; Z79.899 Other long term (current) drug therapy; Z91.041 Radiographic dye allergy status
CPT/HCPCS: 36415; 71010; 80048; 80076; 82150; 83690; 85025; 99284; J2270; J2405

== ENCOUNTER 2016-09-20 20:37 | Emergency (ER) | payer OTHER ==
--- NOTE | ~2016-09-20 | CT4 ---
[facility] A Service of [facility] RADIOLOGY TEXT RESULTS PATIENT: KRISTIAN MOORE LOCATION: [facility] : [birth year] UNIT #: [id number] AGE: [address]: Bladimir Francis MD SEX: M ORDER DR: [id number] [facility] [address] [place], [place] [address] [id number] E MR#: [id number] Acc #: [id number] NAME: KRISTIAN MOORE. : 1970 SEX: M STUDY DATE/TIME: 09/20/2016 22:47 UNIT: BEN ROOM: STUDY DESCRIPTION: CT Abd and Pelv Wo Cont Attending Physician: Bladimir Francis M.D. Ordering Physician: Bladimir Francis M.D. Primary Care Physician: Berry Short Jr., A.P.R.N. MEDICAL IMAGING REPORT This report is preliminary unless electronic signature is present EXAM CT abdomen and pelvis without contrast INDICATIONS Left flank pain for the past [address] of the abdomen and pelvis. This CT exam was performed with one or more of the following radiation dose reduction techniques: automatic control, adjustment of mA and/or kV according to patient size, and iterative reconstruction. COMPARISON 08/29/2016 FINDINGS Included lung bases are clear. Liver spleen adrenal glands pancreas gallbladder unremarkable. The bowel loops are nondilated. There are a few segments of small bowel in the mid abdomen which may be mildly thickened. PELVIS WITHOUT CONTRAST: No pelvic mass. No radiodense bladder calculus. Bilateral hydroceles. No aggressive appearing bone lesion. IMPRESSION 1. A few segments of small bowel in the mid abdomen show possible mild thickening. This could be peristalsis or reflect mild enteritis. There is no evidence for obstruction. 2. No radiodense urinary system calculus or hydronephrosis. Dictated by... Chente Wade M.D. [facility] A Service of [facility] RADIOLOGY TEXT RESULTS PATIENT: KRISTIAN MOORE LOCATION: [facility] : [birth year] UNIT #: [id number] AGE: [address]: Bladimir Francis MD SEX: M ORDER DR: THIS IS AN ELECTRONICALLY VERIFIED REPORT Chente Wade M.D. at 09/21/2016 9:56 PM BENJAMIN/paul TD: 09/21/2016 04:34 JOB #: [id number] MEDICAL IMAGING REPORT Page 1 of 1 COPY
--- NOTE | ~2016-09-20 | OR ---
Unit #: [id number] #: [id number] Patient: KRISTIAN MOORE [id number] [address] [place], [place] [address] [id number] E MR#: [id number] NAME: KRISTIAN MOORE. ROOM: Date of Procedure: 09/20/2016 Admission Date: 09/20/2016 Surgeon: Marquez Dacosta M.D. : 1970 Attending Physician: Bladimir Francis M.D. Primary Care Physician: Berry Short Jr., A.P.R.N. OPERATIVE REPORT PROCEDURE PERFORMED Esophagogastroduodenoscopy with biopsy. INDICATION A 45-year-old gentleman with significant upper abdominal pain, nausea, vomiting, recurrent undergoing evaluation with upper endoscopy. MEDICATIONS Monitored anesthesia. POSTOPERATIVE FINDINGS 1. Several small superficial ulcers in the distal esophagus with esophagitis. Biopsies taken. 2. Mild gastritis. Biopsies taken. 3. Several superficial abscesses seen in the duodenum, most likely secondary to chemotherapy. PLAN Increase PPI therapy to b.i.d., add Carafate for further relief. Follow up on pathology report. DESCRIPTION OF PROCEDURE The patient was explained of the procedure, risks, and benefits along with risks and benefits of anesthesia. He was brought to the endoscopy room. Propofol anesthesia was given. Bite block was placed. The scope was passed down the mouth into esophagus, stomach, duodenum, and distal duodenum. Findings as described. Biopsies taken. Gently, I pulled the catheter out of the patient's mouth. He tolerated it well. Dictated by... Justine Matias/nikolai TD: 09/21/2016 07:08 JOB #: [id number] Unit #: [id number] #: [id number] Patient: KRISTIAN MOORE OPERATIVE REPORT Page 1 of 1 X Marquez Dacosta MD X PROCEDURE OPERATIVE NOTE
[~2016-09-20 20:37] MED LIST changes: -ATIVAN PO; -CARAFATE1 GM PO; -DEXAMETHASONE4 M1 PO; -LIDOCAINE HCL 220 ML PO; -MAGNESIUM400 M1 PO; -MS CONTIN30 MG PO; -OMNICEF300 MG PO; -PERCOCET10 PO; -PHENERGAN25 M1 PO; -PROTONIX PO
[2016-09-20 22:53] LABS: URINE SOURCE CLEAN CATCH
[2016-09-20 22:57] LABS: URINE APPEARANCE CLEAR; URINE BILIRUBIN NEG (NEG); URINE BLOOD NEG (NEG); URINE COLOR YELLOW; URINE GLUCOSE NEG (NEG); URINE KETONE NEG (NEG); URINE LEUKOCYTE ESTERASE NEG (NEG); URINE NITRATE NEG (NEG); URINE PH 5.5 (5-8); URINE PROTEIN NEG (NEG); URINE SPECIFIC GRAVITY 1.026 (1.003-1.035); URINE UROBILINOGEN 0.2 MG/DL (NEG)
[2016-09-20 23:03] LABS: CULTURE INDICATED? NO
[2016-09-20 23:18] LABS: BASOPHIL% 0.7 % (0-2.5); EOSINOPHIL# 0.2 X10e3 (0-0.7); HEMATOCRIT 36.8 % (38.0-50.0); HEMOGLOBIN 12.4 gm/dL (13.0-16.0); LYMPHOCYTE# 2.2 X10e3 (1.0-3.5); LYMPHOCYTE% 36.3 % (17.0-45.0); MEAN CELL VOLUME 91.5 FL (83-96); MEAN CORPUSCULAR HEMOGLOBIN 30.7 PG (28-34); MEAN CORPUSCULAR HGB CONC 33.6 g/dL (30-36); MEAN PLATELET VOLUME 7.8 FL (6.5-11.5); MONOCYTE# 0.2 X10e3 (0-1.0); NEUTROPHIL# 3.3 X10e3 (1.5-7.1); PLATELET COUNT 238 X10e3 (140-420); RED BLOOD COUNT 4.02 X10e (3.90-5.60); RED CELL DISTRIBUTION WIDTH 13.7 % (11.0-15.5)
[2016-09-20 23:23] LABS: DIFF IND NO
[2016-09-20 23:43] LABS: ALBUMIN SERUM 3.8 g/dL (3.5-5.0); BILIRUBIN, DIRECT 0.1 mg/dL (0.0-0.2); BILIRUBIN,INDIRECT 0.5 mg/dL (0.0-0.9); BILIRUBIN,TOTAL 0.6 mg/dL (0.2-2.0); CALCIUM SERUM 8.9 mg/dL (8.4-10.2); CREATININE SERUM 0.6 mg/dL (0.6-1.4); GLOM FILT RATE Estimated 119.8 mL/min (>60); POTASSIUM 3.7 mmol/L (3.5-5.1); PROTEIN TOTAL SERUM 6.2 g/dL (6.0-8.3)
[2016-11-27] MEDS ORDERED: PERCOCET10 PO ×2 (09:14→09:16)
[2016-12-02] MEDS ORDERED: ATIVAN PO (12:22)
[2016-12-02] MEDS ORDERED: PROTONIX PO (12:22)
[2016-12-02] MEDS ORDERED: CARAFATE1 GM PO (12:22)
== END 2016-09-21 00:22 | disposition home or self-care (01) ==
LOC: CFTX 20:37 → CED 20:37 → CFTX 21:17 → CED 09-21 00:22
PROVIDERS: Emergency Medicine
DX: M53.3 Sacrococcygeal disorders, not elsewhere classified (principal); M54.5 Low back pain; R10.13 Epigastric pain; Z91.041 Radiographic dye allergy status
CPT/HCPCS: 36415; 74176; 80048; 80076; 81003; 83690; 85025; 96361; 96374; 99284; J1170

== ENCOUNTER → 2016-09-20 | Day surgery (SDC) | payer OTHER ==
[~2016-09-20] MED LIST changes: +ATIVAN PO; +CARAFATE1 GM PO; +DEXAMETHASONE4 M1 PO; +LIDOCAINE HCL 220 ML PO; +MAGNESIUM400 M1 PO; +MS CONTIN30 MG PO; +OMNICEF300 MG PO; +PERCOCET10 PO; +PHENERGAN25 M1 PO; +PROTONIX PO
== END | disposition home or self-care (01) ==
LOC: COPS 10:10
DX: K29.50 Unspecified chronic gastritis without bleeding (principal); K22.10 Ulcer of esophagus without bleeding; K21.0 Gastro-esophageal reflux disease with esophagitis; K26.9 Duodenal ulcer, unspecified as acute or chronic, without hemorrhage or perforation; I51.7 Cardiomegaly; E03.9 Hypothyroidism, unspecified; F17.200 Nicotine dependence, unspecified, uncomplicated; C34.90 Malignant neoplasm of unspecified part of unspecified bronchus or lung; Z79.899 Other long term (current) drug therapy; Z87.11 Personal history of peptic ulcer disease; Z87.09 Personal history of other diseases of the respiratory system; Z91.041 Radiographic dye allergy status; Z96.651 Presence of right artificial knee joint; Z98.890 Other specified postprocedural states
CPT/HCPCS: 88305; 88312; J1642; J2250; J3010

== ENCOUNTER 2016-09-26 10:39 | Emergency (ER) | payer OTHER ==
[~2016-09-26] VITALS: Ht 180.3 cm; Wt 76.2 kg
[2016-11-27] MEDS ORDERED: PERCOCET10 PO ×2 (09:14→09:16)
[2016-12-02] MEDS ORDERED: ATIVAN PO (12:22)
[2016-12-02] MEDS ORDERED: PROTONIX PO (12:22)
[2016-12-02] MEDS ORDERED: CARAFATE1 GM PO (12:22)
== END 2016-09-26 14:24 | disposition home or self-care (01) ==
LOC: CED 10:39
DX: M54.42 Lumbago with sciatica, left side (principal); Z85.118 Personal history of other malignant neoplasm of bronchus and lung; F17.200 Nicotine dependence, unspecified, uncomplicated; Z91.041 Radiographic dye allergy status
CPT/HCPCS: 96374; 96376; 99283; J1170

== ENCOUNTER 2016-09-26 23:29 | Emergency (ER) | payer OTHER ==
[~2016-09-26] VITALS: Ht 180.3 cm; Wt 75.7 kg
[2016-11-27] MEDS ORDERED: PERCOCET10 PO ×2 (09:14→09:16)
[2016-12-02] MEDS ORDERED: ATIVAN PO (12:22)
[2016-12-02] MEDS ORDERED: CARAFATE1 GM PO (12:22)
[2016-12-02] MEDS ORDERED: PROTONIX PO (12:22)
== END 2016-09-27 02:15 | disposition home or self-care (01) ==
LOC: CED 23:29
DX: G89.29 Other chronic pain (principal); M54.5 Low back pain; F11.20 Opioid dependence, uncomplicated; Z85.118 Personal history of other malignant neoplasm of bronchus and lung; Z79.899 Other long term (current) drug therapy; Z91.041 Radiographic dye allergy status
CPT/HCPCS: 99283

== ENCOUNTER 2016-09-28 22:57 | Inpatient (IN) | payer OTHER ==
[~2016-09-28] VITALS: Ht 180.3 cm; Wt 75.0 kg
--- NOTE | ~2016-09-28 | MR113 ---
[facility] A Service of [facility] RADIOLOGY TEXT RESULTS PATIENT: KRISTIAN MOORE LOCATION: [facility] 330- : [birth year] UNIT #: [id number] AGE: [address]: FLORIAN GARCIA V SEX: M ORDER DR: [id number] [facility] [address] [place], [place] [address] [id number] I MR#: [id number] Acc #: [id number] NAME: KRISTIAN MOORE : 1970 SEX: M STUDY DATE/TIME: 10/01/2016 16:58 UNIT: [address] ROOM: 330 STUDY DESCRIPTION: MR Lumbar Wo Contrast Attending Physician: Florian Garcia M.D. Ordering Physician: Russell CondonPJourdanRPapito Primary Care Physician: Berry Short Jr. A.P.RPapito MRI [facility]ENTER REPORT This report is preliminary unless electronic signature is present. EXAM Lumbar spine MRI without. HISTORY Newly diagnosed lung cancer with low back pain for a month and intermittent numbness in legs. Acute pain, left lower back. Patient had a great amount of difficulty cooperating. This study is quite motion limited despite sequence repeats. COMPARISON There is a comparison abdomen and pelvis CT from 09/20/2016. FINDINGS There is some straightening of lumbar lordosis. There is no convincing evidence for osseous metastatic disease. The intervertebral discs are desiccated from L2-L3 through the L4-L5 levels with mild loss of intervertebral disc height from L2-L3 through L5-S1 levels. The conus medullaris terminates around L1-L2 and is grossly normal. At L1-L2, there is no significant abnormality. At L2-L3, there is mild facet hypertrophy and mild concentric disc bulge with a broad posterior protrusion/extrusion. This results in mild effacement of the anterior thecal sac and mild bilateral foraminal narrowing. At L3-L4, there is a concentric disc bulge with superimposed broad extrusion extending slightly caudad from the disc, remaining contiguous with it, most prominent in the right paramedian location. There is mild canal stenosis and mass effect on right greater than left lateral recess and probably mild to moderate foraminal narrowing. At L4-L5, there is mild to moderate facet degenerative change. There is STS. [facility] A Service of [facility] RADIOLOGY TEXT RESULTS PATIENT: KRISTIAN MOORE LOCATION: [facility] 330-01 : [birth year] UNIT #: [id number] AGE: [address]: FLORIAN GARCIA V SEX: M ORDER DR: concentric disc bulge with a superimposed right posterolateral extrusion. There is no canal stenosis, but there is mild mass effect on right greater than left lateral recess, and there is impingement upon the expected location of the right L4 root in the foramen by the disc extrusion with about moderate foraminal narrowing, as well as mass effect on the expected location of the right L4 root lateral to the foramen. Probably not significant left-sided foraminal impingement. At L5-S1, [id number] right and milder left-sided facet arthritis. There is a concentric disc bulge more prominent to the left L5-S1 foramen. There is mass effect on the left lateral recess and probably fairly severe left-sided foraminal impingement. There is no canal stenosis. IMPRESSION 1. Extremely motion limited study. Patient had great difficulty cooperating. 2. There is no suspicion for osseous metastatic disease. 3. There is lumbar degenerative change at multiple levels. Canal stenosis is most prominent at L3-L4 where it is mild. Foraminal impingement is most severe on the right side at L4-L5 and on the left side at L5-S1. See above. STAT * RESULT Dictated by... Sri Duque M.D. THIS IS AN ELECTRONICALLY VERIFIED REPORT Sri Duque M.D. at 10/01/2016 11:44 PM SANA/sabrina TD: 10/01/2016 19:20 JOB #: [id number] [facility] REPORT Page 1 of 1 COPY
--- NOTE | ~2016-09-28 | EE ---
Unit #: [id number] #: [id number] Patient: KRISTIAN MOORE [id number] [address] [address] [id number] I MR#: [id number] NAME: KRISTIAN MOORE. : 1970 SEX: M STUDY DATE/TIME: 09/30/2016 UNIT: C3A PCU ROOM: 330 STUDY DESCRIPTION: EEG Attending Physician: Scotty Meneses M.D. Referring Physician: George Santos M.D. Primary Care Physician: Berry Short Jr., A.P.R.N. NEURODIAGNOSTICS REPORT REASON FOR STUDY Possible seizures. EEG DESCRIPTION This is an inpatient, digitally recorded multi-montage adult EEG with leads placed according to the International 10-20 system. Hyperventilation and photic stimulation was attempted. With the patient fully aroused, there is 8.5 hertz posterior dominant alpha rhythm, which is symmetric and attenuates with eyes open. The patient did become drowsy and later on brief episodic sleep was seen. Hyperventilation was attempted but I did not see any significant changes. Photic stimulation was attempted in intermittent stepwise fashion after the flash frequency of 30 hertz but I did not see any driving, asymmetry, or paroxysmal activity. No clinical events were seen. IMPRESSION This is an essentially normal adult, awake and sleep EEG. EEG like this does not rule out epilepsy. Clinical correlation is recommended. Dictated by... Justine Araya/heidi TD: 10/01/2016 06:07 JOB #: [id number] NEURODIAGNOSTICS REPORT Page 1 of 1 X Casper Guerra MD NEURODIAGNOSTICS REPORT
--- NOTE | ~2016-09-28 | CO ---
Unit #: [id number] #: [id number] Patient: KRISTIAN MOORE [id number] [address] [place], [place] [address] [id number] I MR#: [id number] NAME: KRISTIAN MOORE. ROOM: 330 Age: 45 Sex: M Admission Date: 09/29/2016 : 1970 Attending Physician: George Santos M.D. Primary Care Physician: Berry Short Jr., A.P.R.N. CONSULTATION REPORT ADDENDUM PHYSICAL EXAMINATION NEUROLOGIC: The patient is status post sedation. He is complaining of pain. He is following some simple commands. Orientation is very questionable. He has just got some Ativan. Cranial examination, responded to threats in the primary trujillo. I did not see any facial asymmetry. Hearing seemed to be intact. His pupils seem to be reactive. Eyes are conjugate. No ptosis. No nystagmus. No facial asymmetry. Sensation on the face and scalp are normal. Strength of muscles of facial expression seemed to be normal. Hearing seemed to be intact. Tongue was midline. I could not visualize his oropharynx or uvula. Head turning was spontaneous. Motor examination demonstrated normal bulk and tone. He is moving all extremities. Strength of at least 4/5, again level of consciousness is an issue. Sensory examination intact for soft touch and pain. No extinction was seen. Romberg was not evaluated. Gait examination was deferred. I could not get any reflexes. Toes are equivocal. DIAGNOSTIC STUDIES LABORATORY RESULTS: All his chemistry profile and other labs looked okay. His hemoglobin and hematocrit were 12.4 and 36.4. Urine drug screen was positive for tricyclics and benzodiazepines, also amphetamines. I really did not know where that came from and there were no opiates, where he is supposed to be on opiates. IMAGING STUDIES: CT head which was reported as no acute findings. He had MRI of the brain on 08/30/2016, which was okay. IMPRESSION Multiple seizures, very nonspecific cole he having that, why was amphetamine in his urine, is he taking any medication, his tricyclics are explained why were no benzodiazepines, is he going through withdrawal. I may have to do another MRI. I will check his EEG. I am going to put him on Vimpat and I have to consider Lyrica, also I have to consider seizure precautions and we will see how things go. I will check his EEG and further treatment will be based on our findings. Dictated by... Unit #: [id number] #: [id number] Patient: KRISTIAN MOORE Justine Araya/nikolai TD: 09/29/2016 16:43 JOB #: [id number] CONSULTATION REPORT Page 1 of 1 X Casper Guerra MD X CONSULTATION REPORT
--- NOTE | ~2016-09-28 | HP ---
Unit #: [id number] #: [id number] Patient: KRISTIAN MOORE [id number] [address] [place], [place] [address] [id number] I MR#: [id number] NAME: KRISTIAN MOORE ROOM: 330 Age: 45 Sex: M Admission Date: 09/29/2016 : 1970 Attending Physician: George Santos M.D. Primary Care Physician: Berry Short Jr., A.P.R.N. HISTORY AND PHYSICAL CHIEF COMPLAINT New onset seizures. HISTORY This is a pleasant 45-year-old male with a history of tobacco use, history of lung cancer, followed by Dr. Barr and Dr. Celis's group. He is on chemotherapy and radiation treatment. He presented to the emergency room brought in by the EMS with two episodes of new onset seizures, lasting about one minute, witness in the bed by the fiancee. He has been complaining of some back pain in the meantime. In the emergency room the patient received some (1) and 1 liter bolus of normal saline. He is admitted for further evaluation. REVIEW OF SYSTEMS Twelve point review of system is completed and is remarkable for the lower back pain. The rest of the review of systems unremarkable. He has no nausea, vomiting, abdominal pain. No chest pain. (2) consider severe. ALLERGIES Allergic to iodine and contrast oral and IV. HOME MEDICATIONS Zoloft 50 mg daily; diclofenac 75 mg twice daily; Bentyl 20 mg p.o. 4 times daily on betazole 20 mg daily; amitriptyline 25 mg p.o. at bedtime; oxycodone 10/325 mg p.o. q.4 to 6 hours as needed. PHYSICAL EXAMINATION GENERAL: He is awake, alert and oriented to time, place and person. VITAL SIGNS: His vital are stable. He is afebrile. Blood pressure is 112/78. HEENT: My pupils are equal and reactive to light. NECK: Supple. No thyromegaly noted. CHEST: Good air entry. CVS: Regular rhythm. S1 and S2. ABDOMEN: Soft, nontender. Bowel sounds positive. SKIN: No ulcers. NEUROLOGIC: Nonfocal. Moving all extremities. Has a tenderness in the back examination. No masses palpable. ASSESSMENT 1. New onset seizures. Questionable metastasis of lung cancer. History of lung cancer on chemo and radiation. 2. Depression Unit #: [id number] #: [id number] Patient: KRISTIAN MOORE PLAN Will get heme/onc consult. Patient's neuro consult has already been called. Get CT scan of head. If not done in the emergency room, start Dilaudid 1 mg q.4 p.r.n. Discontinue oxycodone. Dictated by Justine Castellanos/heidi TD: 09/29/2016 13:59 JOB #: [id number] HISTORY AND PHYSICAL Page 1 of 1 X Ivet Denson MD X HISTORY AND PHYSICAL
--- NOTE | ~2016-09-28 | CT71 ---
[facility] A Service of [facility] RADIOLOGY TEXT RESULTS PATIENT: KRISTIAN MOORE LOCATION: [facility] 330- : [birth year] UNIT #: [id number] AGE: [address]: George Santos MD SEX: M ORDER DR: [id number] [facility] [address] [facility]. [place], [place] [address] [id number] I MR#: [id number] Acc #: [id number] NAME: KRISTIAN MOORE : 1970 SEX: M STUDY DATE/TIME: 09/29/2016 00:26 UNIT: [address] ROOM: [facility] STUDY DESCRIPTION: CT Head Wo Contrast Attending Physician: George Santos M.D. Ordering Physician: Joe Lester M.D. Primary Care Physician: Berry Short Jr., A.P.R.N. MEDICAL IMAGING REPORT This report is preliminary unless electronic signature is present EXAM Head CT, 09/29 at 00:26 hours INDICATION Seizure x2 today. New onset. Subsequent headache. History of lung cancer. TECHNIQUE Axial images were obtained from the base to the vertex without contrast. This CT exam was performed with one or more of the following radiation dose reduction techniques: automatic exposure control, adjustment of mA and/or kV according to patient size, and iterative reconstruction. COMPARISON 08/30/2015 FINDINGS Ventricular size and configuration remain normal. Chronic small vessel ischemic changes are present in the white matter. No acute infarct or hemorrhage is seen. There are no masses. There are no skull fractures. There are no suspicious osseous lesions. There are a few new radiopaque foreign bodies in the left temporal scalp. Correlate with interval history. IMPRESSION No acute findings in the brain. No skull fracture or suspicious osseous lesion. There are a few small radiopaque foreign bodies now noted in the left temporal scalp. These were not present on 08/30/2015. Please correlate with interval history. Dictated by... Bladimir Mcrae Jr., M.D. [facility] A Service of [facility] RADIOLOGY TEXT RESULTS PATIENT: KRISTIAN MOORE LOCATION: [facility] 330-01 : [birth year] UNIT #: [id number] AGE: [address]: George Santos MD SEX: M ORDER DR: THIS IS AN ELECTRONICALLY VERIFIED REPORT Bladimir Mcrae Jr., M.D. at 09/29/2016 9:21 PM Mario TD: 09/29/2016 13:41 JOB #: [id number] MEDICAL IMAGING REPORT Page 1 of 1 COPY
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
--- NOTE | ~2016-09-28 | MR18 ---
[facility] A Service of [facility] & [facility] RADIOLOGY TEXT RESULTS PATIENT: KRISTIAN MOORE LOCATION: [facility] 330-01 : [birth year] UNIT #: [id number] AGE: [address]: FLORIAN GARCIA V SEX: M ORDER DR: [id number] [facility] [address] [place], [place] [address] [id number] I MR#: [id number] Acc #: [id number] NAME: KRISTIAN MOORE : 1970 SEX: M STUDY DATE/TIME: 10/01/2016 17:39 UNIT: [address] ROOM: 330 STUDY DESCRIPTION: MR Brain Wo Contrast Attending Physician: Florian Garcia M.D. Ordering Physician: Elva Fernando A.P.R.N. Primary Care Physician: Russell Bowman Jr.P[facility]ourdan[facility]apito [facility] REPORT This report is preliminary unless electronic signature is present. EXAM MRI brain without HISTORY Pain and new onset seizure disorder for 3 days. Patient has had great difficulty cooperating for the study, twice yesterday and once today. The imaging that has been acquired is motion limited. Patient does not have a previous history of seizure disorder. Patient has a new diagnosis of lung cancer in the last month. Observe for suspected intracranial metastatic disease. The study is performed without contrast. COMMENTS MRI of the brain was attempted as discussed above. The study is performed without contrast and this limits evaluation for intracranial metastatic disease. Of note, there is also motion limitation of the study. Comparison study is from 08/30/2016. There is artifact left lateral frontotemporal parietal region. Allowing for this, there is no evidence for a recent ischemic insult on the diffusion series. Similarly, allowing for this, there is no abnormal susceptibility on the T2* imaging. There is again extensive white matter signal abnormality, which is nonspecific but probably due to small vessel disease. The amount seen is unusual in age group and please correlate for severe risk factors. Please correlate for other possibilities such as vasculitis, Lyme's disease, demyelinating disease, severe longstanding complicated migraine or significant previous closed-head injury. The white matter disease is similar to previous. The major intracranial flow voids are maintained. There is no extraaxial fluid collection. There is some mucosal disease in the paranasal sinuses but no obvious air-fluid level. No gross mastoid opacification. No obvious intracranial mass effect. Midline structures are unremarkable. [facility]. [facility] A Service of [facility] RADIOLOGY TEXT RESULTS PATIENT: KRISTIAN MOORE LOCATION: [facility] 330-01 : [birth year] UNIT #: [id number] AGE: [address]: FLORIAN GARCIA V SEX: M ORDER DR: IMPRESSION 1. Allowing for motion and metal artifact, there is no evidence for a recent ischemic insult and there is no intracranial mass effect. There is white matter disease which is fairly severe and considerably greater than expected for age group, not appreciably changed from 08/30/2016. No extraaxial fluid collection is appreciated. 2. Patient reportedly has history of new diagnosis of lung cancer. The study is performed without contrast. Lack of contrast limits evaluation for intracranial metastatic disease. No gross metastatic disease is appreciated on this limited exam. STAT * RESULT Dictated by... Sri Duque M.D. THIS IS AN ELECTRONICALLY VERIFIED REPORT Sri Duque M.D. at 10/01/2016 11:45 PM SAC/psc TD: 10/01/2016 19:28 JOB #: [id number] MRI [facility]ENTER REPORT Page 1 of 1 COPY
--- NOTE | ~2016-09-28 | EKG ---
PATIENT: KRISTIAN MOORE UNIT #: [id number] Ventricular Rate: 111 BPM Atrial Rate: 111 BPM P-R Interval: 122 ms QRS Duration: 78 ms Q-T Interval: 318 ms QTC Calculation(Bezet): 432 ms P Starr: 59 degrees Calculated R Starr: 37 degrees Calculated T Starr: 53 degrees Diagnosis Line: Sinus tachycardia Diagnosis Line: Possible Left atrial enlargement Diagnosis Line: Borderline ECG Diagnosis Line: When compared with ECG of 18-AUG-2016 22:40, Diagnosis Line: No significant change was found Diagnosis Line: Confirmed by ANATOLIY RAMOS MD ([id number]) on Diagnosis Line: 09/30/2016 8:16:31 PM INTERPRETING MD: ASHER
[2016-09-29 01:11] LABS: BASOPHIL% 0.2 % (0-2.5); EOSINOPHIL# 0.2 X10e3 (0-0.7); HEMATOCRIT 36.4 % (38.0-50.0); HEMOGLOBIN 12.4 gm/dL (13.0-16.0); LYMPHOCYTE# 0.9 X10e3 (1.0-3.5); LYMPHOCYTE% 14.7 % (17.0-45.0); MEAN CELL VOLUME 92.8 FL (83-96); MEAN CORPUSCULAR HEMOGLOBIN 31.7 PG (28-34); MEAN CORPUSCULAR HGB CONC 34.1 g/dL (30-36); MEAN PLATELET VOLUME 8.3 FL (6.5-11.5); MONOCYTE# 0.4 X10e3 (0-1.0); MONOCYTE% 5.5 % (3.0-12.0); NEUTROPHIL# 4.9 X10e3 (1.5-7.1); NEUTROPHIL% 76.6 % (40-75); PLATELET COUNT 239 X10e3 (140-420); RED BLOOD COUNT 3.92 X10e (3.90-5.60); RED CELL DISTRIBUTION WIDTH 13.3 % (11.0-15.5); WHITE BLOOD COUNT 6.4 X10e3 (4.0-10.5)
[2016-09-29 01:14] LABS: DIFF IND NO
[2016-09-29 01:18] LABS: POC - CKMB <1.0 ng/mL (0.0-7.9); POC - TROPONIN <0.05 ng/mL (<=0.05)
[2016-09-29 01:37] LABS: ALBUMIN SERUM 3.8 g/dL (3.5-5.0); ALCOHOL BLOOD <5 mg/dL (0); ALKALINE PHOSPHATASE 49 U/L (32-92); ALT (SGPT) 39 U/L (10-40); AST (SGOT) 22 U/L (10-42); BILIRUBIN, DIRECT <0.1 mg/dL (0.0-0.2); BILIRUBIN,INDIRECT 0.2 mg/dL (0.0-0.9); BILIRUBIN,TOTAL 0.3 mg/dL (0.2-2.0); BLOOD UREA NITROGEN 16 mg/dL (9-23); BUN/CREATININE RATIO 17.77; CALCIUM SERUM 8.8 mg/dL (8.4-10.2); CARBON DIOXIDE 26 mmol/L (22-31); CHLORIDE 105 mmol/L (100-111); CREATININE SERUM 0.9 mg/dL (0.6-1.4); GLOM FILT RATE Estimated 101.4 mL/min (>60); GLUCOSE FASTING 107 mg/dL (70-110); SODIUM 137 mmol/L (135-145)
[2016-09-29 02:17] LABS: URINE SOURCE CLEAN CATCH
[2016-09-29 02:21] LABS: URINE APPEARANCE CLEAR; URINE BILIRUBIN NEG (NEG); URINE BLOOD NEG (NEG); URINE COLOR DK YELLOW; URINE GLUCOSE NEG (NEG); URINE KETONE TRACE (NEG); URINE LEUKOCYTE ESTERASE NEG (NEG); URINE NITRATE NEG (NEG); URINE PH 5.5 (5-8); URINE PROTEIN NEG (NEG); URINE SPECIFIC GRAVITY 1.031 (1.003-1.035); URINE UROBILINOGEN 0.2 MG/DL (NEG)
[2016-09-29 02:26] LABS: CULTURE INDICATED? NO
[2016-09-29 02:32] LABS: AMPHETAMINE POS (NEG); BARBITURATES NEG (NEG); BENZODIAZEPINES POS (NEG); COCAINE NEG (NEG); MARIJUANA NEG (NEG); OPIATES NEG (NEG); TRICYCLIC ANTIDEPRESSANTS POS (NEG); U METHADONE NEG (NEG)
[2016-09-30 07:25] LABS: CALCIUM SERUM 8.5 mg/dL (8.4-10.2); CREATININE SERUM 0.6 mg/dL (0.6-1.4); GLOM FILT RATE Estimated 119.8 mL/min (>60); POTASSIUM 3.9 mmol/L (3.5-5.1)
[2016-11-27] MEDS ORDERED: PERCOCET10 PO ×2 (09:14→09:16)
[2016-12-02] MEDS ORDERED: CARAFATE1 GM PO (12:22)
[2016-12-02] MEDS ORDERED: ATIVAN PO (12:22)
[2016-12-02] MEDS ORDERED: PROTONIX PO (12:22)
== END 2016-10-01 20:11 | disposition left against medical advice (07) | DRG 101 ==
LOC: CED 22:57 → C3A PCU 09-29 03:30 → CED 09-29 03:30 → C3A PCU 09-29 03:30 → CEDOF 09-29 03:30 → CED 09-29 04:02 → CEDOF 09-29 04:02 → C3A PCU 09-29 08:11
PROVIDERS: Emergency Medicine; Internal Medicine Endocrinology, Diabetes & Metabolism
DX: G40.909 Epilepsy, unspecified, not intractable, without status epilepticus (principal); C34.90 Malignant neoplasm of unspecified part of unspecified bronchus or lung; E86.0 Dehydration; F32.9 Major depressive disorder, single episode, unspecified; F10.10 Alcohol abuse, uncomplicated; K21.9 Gastro-esophageal reflux disease without esophagitis; F17.200 Nicotine dependence, unspecified, uncomplicated; Z91.041 Radiographic dye allergy status; I51.7 Cardiomegaly; M54.9 Dorsalgia, unspecified; Z96.651 Presence of right artificial knee joint
CPT/HCPCS: 70450; 70551; 72148; 80048; 80076; 80307; 81003; 82553; 84484; 85025; 93005; 95816; 96361; 96374; 96375; 99285; C9254; G0480; J1170; J2060; J2270; J3360

== ENCOUNTER 2016-10-02 22:17 | Emergency (ER) | payer OTHER ==
[~2016-10-02] VITALS: Ht 180.3 cm; Wt 77.1 kg
--- NOTE | ~2016-10-02 | EKG ---
PATIENT: KRISTIAN MOORE UNIT #: [id number] Ventricular Rate: 121 BPM Atrial Rate: 121 BPM P-R Interval: 124 ms QRS Duration: 76 ms Q-T Interval: 308 ms QTC Calculation(Bezet): 437 ms P Rowan: 63 degrees Calculated R Rowan: 45 degrees Calculated T Rowan: 59 degrees Diagnosis Line: Sinus tachycardia Diagnosis Line: Biatrial enlargement Diagnosis Line: Abnormal ECG Diagnosis Line: When compared with ECG of 29-SEP-2016 00:50, Diagnosis Line: No significant change was found Diagnosis Line: Confirmed by OSMAN MATTHEWS MD ([id number]) on Diagnosis Line: 10/03/2016 1:33:23 PM INTERPRETING MD: BYRON MUNOZ
--- NOTE | ~2016-10-02 | CR72 ---
[facility] A Service of [facility] & [facility] RADIOLOGY TEXT RESULTS PATIENT: KRISTIAN MOORE LOCATION: [facility] : [birth year] UNIT #: [id number] AGE: [address]: Mustapha Puga MD SEX: M ORDER DR: [id number] [facility] [address] [place], [place] [address] [id number] E MR#: [id number] Acc #: [id number] NAME: KRISTIAN MOORE. : 1970 SEX: M STUDY DATE/TIME: 10/03/2016 00:36 UNIT: [facility] ROOM: STUDY DESCRIPTION: CR Chest Single View Portable Attending Physician: Mustapha Puga M.D. Ordering Physician: Mustapha Puga M.D. Primary Care Physician: Berry Short Jr., A.P.R.N. MEDICAL IMAGING REPORT This report is preliminary unless electronic signature is present EXAM Portable chest 10/03 at 0036. INDICATIONS Shortness of air, chest pain for 3 weeks. History of lung cancer on the right. FINDINGS AP portable chest compared with 09/18/2016. Lung volumes are lower today. Lungs are grossly clear. Right side Port-A-Cath in the SVC. Right hilar enlargement and right paratracheal fullness are not as well seen as the patient is slightly rotated today. No pneumothorax. IMPRESSION No acute findings in the chest. Patient has known right hilar and paratracheal adenopathy that is not well evaluated on this rotated exam. Dictated by... Bladimir Mcrae Jr., M.D. THIS IS AN ELECTRONICALLY VERIFIED REPORT Bladimir Mcrae Jr., M.D. at 10/03/2016 7:18 PM PETRA/vanesa TD: 10/03/2016 06:14 JOB #: [id number] MEDICAL IMAGING REPORT Page 1 of 1 COPY
--- NOTE | ~2016-10-02 | CR150 ---
[facility] A Service of [facility] & [facility] RADIOLOGY TEXT RESULTS PATIENT: KRISTIAN MOORE LOCATION: [facility] : [birth year] UNIT #: [id number] AGE: [address]: Mustapha Puga MD SEX: M ORDER DR: [id number] [facility] [address] [place], [place] [address] [id number] E MR#: [id number] Acc #: [id number] NAME: KRISTIAN MOORE. : 1970 SEX: M STUDY DATE/TIME: 10/03/2016 00:38 UNIT: [facility] ROOM: STUDY DESCRIPTION: CR Hip Min 2 Views Lt Attending Physician: Mustapha Puga M.D. Ordering Physician: Mustapha Puga M.D. Primary Care Physician: Berry Short Jr., A.P.R.N. MEDICAL IMAGING REPORT This report is preliminary unless electronic signature is present EXAM Left hip and pelvis, 10/03 at 00:38. INDICATIONS Left hip pain for 3 weeks. No known trauma. FINDINGS AP pelvis was obtained in addition to a frogleg left hip. There is no fracture or malalignment. Femoral heads are normal without evidence of osteonecrosis. There are no lytic or blastic lesions. IMPRESSION Normal pelvis and left hip. Dictated by... Bladimir Mcrae Jr., M.D. THIS IS AN ELECTRONICALLY VERIFIED REPORT Bladimir Mcrae Jr., M.D. at 10/03/2016 7:18 PM PETRA/yessenia TD: 10/03/2016 06:16 JOB #: [id number] MEDICAL IMAGING REPORT Page 1 of 1 COPY
[2016-10-03 00:05] LABS: BASOPHIL# 0.1 X10e3 (0-0.3); BASOPHIL% 0.9 % (0-2.5); EOSINOPHIL% 0.1 % (0.0-7.0); HEMATOCRIT 38.7 % (38.0-50.0); HEMOGLOBIN 13.1 gm/dL (13.0-16.0); LYMPHOCYTE# 0.7 X10e3 (1.0-3.5); LYMPHOCYTE% 12.5 % (17.0-45.0); MEAN CELL VOLUME 91.7 FL (83-96); MEAN CORPUSCULAR HGB CONC 33.8 g/dL (30-36); MEAN PLATELET VOLUME 7.4 FL (6.5-11.5); MONOCYTE# 0.2 X10e3 (0-1.0); MONOCYTE% 2.8 % (3.0-12.0); NEUTROPHIL# 4.8 X10e3 (1.5-7.1); NEUTROPHIL% 83.7 % (40-75); PLATELET COUNT 204 X10e3 (140-420); RED BLOOD COUNT 4.22 X10e (3.90-5.60); RED CELL DISTRIBUTION WIDTH 13.7 % (11.0-15.5); WHITE BLOOD COUNT 5.8 X10e3 (4.0-10.5)
[2016-10-03 00:07] LABS: DIFF IND NO
[2016-10-03 00:16] LABS: POC - CKMB <1.0 ng/mL (0.0-7.9); POC - TROPONIN <0.05 ng/mL (<=0.05)
[2016-10-03 00:34] LABS: ALBUMIN SERUM 4.1 g/dL (3.5-5.0); BILIRUBIN, DIRECT 0.1 mg/dL (0.0-0.2); BILIRUBIN,INDIRECT 0.7 mg/dL (0.0-0.9); BILIRUBIN,TOTAL 0.8 mg/dL (0.2-2.0); CALCIUM SERUM 9.3 mg/dL (8.4-10.2); CREATININE SERUM 0.7 mg/dL (0.6-1.4); GLOM FILT RATE Estimated 112.4 mL/min (>60); POTASSIUM 4.5 mmol/L (3.5-5.1); PROTEIN TOTAL SERUM 6.8 g/dL (6.0-8.3)
[2016-10-03 01:46] LABS: POC - CKMB <1.0 ng/mL (0.0-7.9); POC - TROPONIN <0.05 ng/mL (<=0.05)
[2016-11-27] MEDS ORDERED: PERCOCET10 PO ×2 (09:14→09:16)
[2016-12-02] MEDS ORDERED: PROTONIX PO (12:22)
[2016-12-02] MEDS ORDERED: CARAFATE1 GM PO (12:22)
[2016-12-02] MEDS ORDERED: ATIVAN PO (12:22)
== END 2016-10-03 02:15 | disposition home or self-care (01) ==
LOC: CED 22:17
PROVIDERS: Emergency Medicine
DX: R07.89 Other chest pain (principal); M25.552 Pain in left hip; G89.29 Other chronic pain; K21.9 Gastro-esophageal reflux disease without esophagitis; F32.9 Major depressive disorder, single episode, unspecified; F17.200 Nicotine dependence, unspecified, uncomplicated
CPT/HCPCS: 36415; 71010; 73502; 80048; 80076; 82553; 84484; 85025; 93005; 96374; 99285; J1642; J3010

== ENCOUNTER → 2016-10-08 | Outpatient (CLI) | payer OTHER ==
[~2016-10-08] MED LIST changes: +ATIVAN PO; +CARAFATE1 GM PO; +DEXAMETHASONE4 M1 PO; +LIDOCAINE HCL 220 ML PO; +MAGNESIUM400 M1 PO; +MS CONTIN30 MG PO; +OMNICEF300 MG PO; +PERCOCET10 PO; +PHENERGAN25 M1 PO; +PROTONIX PO
--- NOTE | ~2016-10-08 | CR181 ---
[facility] A Service of [facility] & [facility] RADIOLOGY TEXT RESULTS PATIENT: KRISTIAN MOORE LOCATION: [facility] : [birth year] UNIT #: [id number] AGE: [address]: Jhonathan Kumar MD SEX: M ORDER DR: [id number] [facility] [address] [place], [place] [address] [id number] O MR#: [id number] Acc #: [id number] NAME: KRISTIAN MOORE : 1970 SEX: M STUDY DATE/TIME: 10/08/2016 12:16 UNIT: [facility] ROOM: STUDY DESCRIPTION: CR Lumbar Spine 2 or 3 Views Attending Physician: Jhonathan Kumar M.D., Ph.D. Referring Physician: Jhonathan Kumar M.D., Ph.D. Ordering Physician: Jhonathan Kumar M.D., Ph.D. Primary Care Physician: Berry Short Jr., A.P.R.N. MEDICAL IMAGING REPORT This report is preliminary unless electronic signature is present EXAM Lumbar spine 4 views, 10/08/2016 HISTORY Low back pain with left lower extremity radiculopathy for 2 weeks, numbness and tingling in left leg. No known injury. History of lung carcinoma. FINDINGS Four views of the lumbar spine demonstrate no fracture. The posterior vertebral body line is intact and there is no anterolisthesis or retrolisthesis. There is mild disc space narrowing from L2-3 through L5-S1. Anterior osteophytes are seen from L2-L5 and there is degenerative change involving the articular facets. No lytic or erosive process is seen to suggest metastatic disease. IMPRESSION Degenerative change in the lumbar spine. No acute abnormality. Dictated by... De Posey M.D. THIS IS AN ELECTRONICALLY VERIFIED REPORT De Posey M.D. at 10/09/2016 7:36 AM SAADIA/saleem TD: 10/08/2016 17:28 JOB #: [id number] MEDICAL IMAGING REPORT Page 1 of 1 COPY
--- NOTE | ~2016-10-08 | CR150 ---
[facility] A Service of [facility] & [facility] RADIOLOGY TEXT RESULTS PATIENT: KRISTIAN MOORE LOCATION: [facility] : [birth year] UNIT #: [id number] AGE: [address]: Jhonathan Kumar MD SEX: M ORDER DR: [id number] [facility] [address] [place], [place] [address] [id number] O MR#: [id number] Acc #: [id number] NAME: KRISTIAN MOORE : 1970 SEX: M STUDY DATE/TIME: 10/08/2016 12:15 UNIT: [facility] ROOM: STUDY DESCRIPTION: CR Hip Min 2 Views Lt Attending Physician: Jhonathan Kumar M.D., Ph.D. Referring Physician: Jhonathan Kumar M.D., Ph.D. Ordering Physician: Jhonathan Kumar M.D., Ph.D. Primary Care Physician: Berry Short Jr., A.P.R.N. MEDICAL IMAGING REPORT This report is preliminary unless electronic signature is present EXAM Left hip 10/08/2016 HISTORY 45-year-old male left hip pain radiating to the left leg with numbness and tingling 2 weeks duration. History of lung cancer. COMPARISON Pelvis left hip 10/03/2016. FINDINGS AP pelvis with frog-leg lateral view of the left hip demonstrates preservation of the hip joint with no degenerative narrowing or marginal osteophyte formation. There are no cystic erosions. Mineralization appears normal with no evidence for osteolytic metastases. Bilateral sacroiliac joints are preserved. Chronic disc degeneration is noted at both L4-L5 and L5-S1 levels. Consider this relative to the patient's symptoms. IMPRESSION No evidence for metastatic disease. Negative stable left hip. Chronic disc degeneration present at both L4-L5 and L5-S1 levels. Dictated by... Mario Whitlock M.D. THIS IS AN ELECTRONICALLY VERIFIED REPORT Mario Whitlock M.D. at 10/09/2016 8:08 AM JBB/elio TD: 10/08/2016 17:01 [facility] A Service of [facility] & [facility] RADIOLOGY TEXT RESULTS PATIENT: KRISTIAN MOORE LOCATION: [facility] #: [id number] : [birth year] UNIT #: [id number] AGE: [address]: Jhonathan Kumar MD SEX: M ORDER DR: JOB #: [id number] MEDICAL IMAGING REPORT Page 1 of 1 COPY
== END | disposition home or self-care (01) ==
LOC: CRAD 11:50
DX: M25.552 Pain in left hip (principal); C34.90 Malignant neoplasm of unspecified part of unspecified bronchus or lung; M51.36 Other intervertebral disc degeneration, lumbar region; M51.37 Other intervertebral disc degeneration, lumbosacral region
CPT/HCPCS: 72100; 73502

== ENCOUNTER 2016-10-12 12:42 | Emergency (ER) | payer OTHER ==
[~2016-10-12] VITALS: Ht 180.3 cm; Wt 76.2 kg
--- NOTE | ~2016-10-12 | CR72 ---
[facility] A Service of [facility] & [facility] RADIOLOGY TEXT RESULTS PATIENT: KRISTIAN MOORE LOCATION: [facility] : [birth year] UNIT #: [id number] AGE: [address]: Jean-Pierre Stiles MD SEX: M ORDER DR: [id number] [facility] [address] [place], [place] [address] [id number] E MR#: [id number] Acc #: [id number] NAME: KRISTIAN MOORE : 1970 SEX: M STUDY DATE/TIME: 10/12/2016 13:07 UNIT: [facility] ROOM: STUDY DESCRIPTION: CR Chest Single View Portable Attending Physician: Jean-Pierre Stiles M.D. Ordering Physician: Jean-Pierre Stiles M.D. Primary Care Physician: Berry Short Jr., A.P.R.N. MEDICAL IMAGING REPORT This report is preliminary unless electronic signature is present EXAM Portable chest radiograph. INDICATIONS Mild chest pain and congestion starting today. FINDINGS Comparison made to prior exam from October 03, 2016. Cardiomediastinal silhouette is unchanged. There is a right internal jugular vein MediPort which extends into the superior vena cava. Heart size is within normal limits. No pneumothorax is seen. Previously identified right-sided infiltrates appear improved when compared to the October 03, 2016 exam, although, I do think there is still some right basilar infiltrate. Overall lung volumes appear diminished. No new infiltrates are seen. Dictated by... Lacey Braun M.D. THIS IS AN ELECTRONICALLY VERIFIED REPORT Lacey Braun M.D. at 10/14/2016 5:01 PM RONALD/baylee TD: 10/12/2016 16:13 JOB #: [id number] MEDICAL IMAGING REPORT Page 1 of 1 COPY
--- NOTE | ~2016-10-12 | CT71 ---
[facility] A Service of [facility] RADIOLOGY TEXT RESULTS PATIENT: KRISTIAN MOORE LOCATION: [facility] : [birth year] UNIT #: [id number] AGE: [address]: Jean-Pierre Stiles MD SEX: M ORDER DR: [id number] [facility] [address] [place], [place] [address] [id number] E MR#: [id number] Acc #: [id number] NAME: KRISTIAN MOORE : 1970 SEX: M STUDY DATE/TIME: 10/12/2016 13:43 UNIT: [facility] ROOM: STUDY DESCRIPTION: CT Head Wo Contrast Attending Physician: Jean-Pierre Stiles M.D. Ordering Physician: Jean-Pierre Stiles M.D. Primary Care Physician: Berry Short Jr., A.P.R.N. MEDICAL IMAGING REPORT This report is preliminary unless electronic signature is present EXAM CT scan of the head without contrast HISTORY Seizure which was witness x 2 today COMPARISON STUDIES 09/29/[address] exam was performed with one or more of the following radiation dose reduction techniques: automatic exposure control, adjustment of mA and/or kV according to patient size, and iterative reconstruction. FINDINGS Unenhanced images were obtained through the brain. The ventricles and subarachnoid spaces are normal. There are no masses or extraaxial fluid collections or hemorrhage. There is minimal small vessel ischemic change around the ventricles. IMPRESSION No change. No evidence for acute abnormality. Dictated by... Feliz Harmon M.D. THIS IS AN ELECTRONICALLY VERIFIED REPORT Feliz Harmon M.D. at 10/13/2016 10:45 AM CHAR/red [facility] A Service [facility] RADIOLOGY TEXT RESULTS PATIENT: KRISTIAN MOORE LOCATION: [facility] : [birth year] UNIT #: [id number] AGE: [address]: Jean-Pierre Stiles MD SEX: M ORDER DR: TD: 10/12/2016 16:45 JOB #: [id number] MEDICAL IMAGING REPORT Page 1 of 1 COPY
[~2016-10-12 12:42] MED LIST changes: -ATIVAN PO; -CARAFATE1 GM PO; -DEXAMETHASONE4 M1 PO; -LIDOCAINE HCL 220 ML PO; -MAGNESIUM400 M1 PO; -MS CONTIN30 MG PO; -OMNICEF300 MG PO; -PERCOCET10 PO; -PHENERGAN25 M1 PO; -PROTONIX PO
[2016-10-12 13:22] LABS: BASOPHIL% 0.4 % (0-2.5); EOSINOPHIL# 0.1 X10e3 (0-0.7); EOSINOPHIL% 1.1 % (0.0-7.0); HEMATOCRIT 45.5 % (38.0-50.0); HEMOGLOBIN 15.4 gm/dL (13.0-16.0); LYMPHOCYTE# 1.4 X10e3 (1.0-3.5); LYMPHOCYTE% 20.3 % (17.0-45.0); MEAN CELL VOLUME 93.5 FL (83-96); MEAN CORPUSCULAR HEMOGLOBIN 31.6 PG (28-34); MEAN CORPUSCULAR HGB CONC 33.8 g/dL (30-36); MEAN PLATELET VOLUME 7.5 FL (6.5-11.5); MONOCYTE# 0.5 X10e3 (0-1.0); MONOCYTE% 6.9 % (3.0-12.0); NEUTROPHIL% 71.3 % (40-75); PLATELET COUNT 279 X10e3 (140-420); RED BLOOD COUNT 4.87 X10e (3.90-5.60); RED CELL DISTRIBUTION WIDTH 14.7 % (11.0-15.5)
[2016-10-12 13:31] LABS: DIFF IND NO
[2016-10-12 13:59] LABS: ALBUMIN SERUM 4.4 g/dL (3.5-5.0); ALKALINE PHOSPHATASE 63 U/L (32-92); ALT (SGPT) 47 U/L (10-40); AST (SGOT) 29 U/L (10-42); BLOOD UREA NITROGEN 25 mg/dL (9-23); BUN/CREATININE RATIO 35.71; CALCIUM SERUM 9.9 mg/dL (8.4-10.2); CARBON DIOXIDE 28 mmol/L (22-31); CHLORIDE 102 mmol/L (100-111); CREATININE SERUM 0.7 mg/dL (0.6-1.4); GLOM FILT RATE Estimated 112.4 mL/min (>60); GLUCOSE FASTING 138 mg/dL (70-110); PROTEIN TOTAL SERUM 7.6 g/dL (6.0-8.3); SODIUM 140 mmol/L (135-145)
[2016-10-12 14:02] LABS: BILIRUBIN, DIRECT <0.1 mg/dL (0.0-0.2); BILIRUBIN,INDIRECT 0.9 mg/dL (0.0-0.9)
[2016-10-12 14:48] LABS: URINE SOURCE CLEAN CATCH
[2016-10-12 15:07] LABS: URINE APPEARANCE TURBID; URINE BILIRUBIN NEG (NEG); URINE BLOOD NEG (NEG); URINE COLOR YELLOW; URINE GLUCOSE NEG (NEG); URINE KETONE 1+ (NEG); URINE LEUKOCYTE ESTERASE NEG (NEG); URINE NITRATE NEG (NEG); URINE PROTEIN NEG (NEG); URINE SPECIFIC GRAVITY 1.021 (1.003-1.035)
[2016-10-12 15:13] LABS: CULTURE INDICATED? NO
[2016-10-12 15:30] LABS: AMPHETAMINE NEG (NEG); BARBITURATES NEG (NEG); BENZODIAZEPINES POS (NEG); COCAINE NEG (NEG); MARIJUANA NEG (NEG); OPIATES NEG (NEG); TRICYCLIC ANTIDEPRESSANTS POS (NEG); U METHADONE NEG (NEG)
[2016-11-27] MEDS ORDERED: PERCOCET10 PO ×2 (09:14→09:16)
[2016-12-02] MEDS ORDERED: CARAFATE1 GM PO (12:22)
[2016-12-02] MEDS ORDERED: ATIVAN PO (12:22)
[2016-12-02] MEDS ORDERED: PROTONIX PO (12:22)
== END 2016-10-12 18:24 | disposition home or self-care (01) ==
LOC: CED 12:42
PROVIDERS: Emergency Medicine
DX: R56.9 Unspecified convulsions (principal); Z91.041 Radiographic dye allergy status; Z79.899 Other long term (current) drug therapy
CPT/HCPCS: 36415; 70450; 71010; 80048; 80076; 80307; 81003; 82947; 85025; 96361; 96374; 99285; J2270

== ENCOUNTER 2016-10-16 08:45 | Emergency (ER) | payer OTHER ==
[~2016-10-16] VITALS: Ht 180.3 cm; Wt 76.2 kg
[2016-11-27] MEDS ORDERED: PERCOCET10 PO ×2 (09:14→09:16)
[2016-12-02] MEDS ORDERED: PROTONIX PO (12:22)
[2016-12-02] MEDS ORDERED: ATIVAN PO (12:22)
[2016-12-02] MEDS ORDERED: CARAFATE1 GM PO (12:22)
== END 2016-10-16 11:18 | disposition home or self-care (01) ==
LOC: CED 08:45
DX: M54.42 Lumbago with sciatica, left side (principal); Z85.118 Personal history of other malignant neoplasm of bronchus and lung; Z91.041 Radiographic dye allergy status; Z98.890 Other specified postprocedural states
CPT/HCPCS: 96372; 99283; J1885

== ENCOUNTER 2016-10-24 23:38 | Emergency (ER) | payer OTHER ==
[~2016-10-24] VITALS: Ht 180.3 cm; Wt 76.2 kg
--- NOTE | ~2016-10-24 | EKG ---
PATIENT: KRISTIAN MOORE UNIT #: [id number] Ventricular Rate: 131 BPM Atrial Rate: 131 BPM P-R Interval: 120 ms QRS Duration: 78 ms Q-T Interval: 302 ms QTC Calculation(Bezet): 445 ms P [place]edo: 68 degrees Calculated R [place]: 37 degrees Calculated T [place]: 48 degrees Diagnosis Line: Sinus tachycardia Diagnosis Line: Possible Left atrial enlargement Diagnosis Line: Borderline ECG Diagnosis Line: When compared with ECG of 02-OCT-2016 22:41, Diagnosis Line: No significant change was found Diagnosis Line: Confirmed by BIANCA MAYS MD ([id number]) on 10/25/2016 Diagnosis Line: 4:55:29 PM INTERPRETING MD: TABATHA MUNOZ
--- NOTE | ~2016-10-24 | CR72 ---
[facility] A Service of [facility] & [facility] & [facility] RADIOLOGY TEXT RESULTS PATIENT: KRISTIAN MOORE LOCATION: [facility] : [birth year] UNIT #: [id number] AGE: [address]: Shakeel Worthington MD SEX: M ORDER DR: [id number] [facility] [place] [facility] [address] [place], [place] [address] [id number] E MR#: [id number] Acc #: [id number] NAME: KRISTIAN MOORE : 1970 SEX: M STUDY DATE/TIME: 10/25/2016 0053 UNIT: [facility] ROOM: STUDY DESCRIPTION: CR Chest Single View Portable Attending Physician: Shakeel Worthington M.D. Ordering Physician: Amanda Leija M.D. Primary Care Physician: Berry Short Jr., A.P.R.N. MEDICAL IMAGING REPORT This report is preliminary unless electronic signature is present EXAM Portable chest, 10/25 at 0053. INDICATION Chest pain and shortness of air and back pain today. Lung cancer. FINDINGS AP portable chest compared with 10/12/2016. Cardiac and mediastinal contours are normal. Lungs appear clear. No pneumothorax. Right side Port-A-Cath tip in the SVC. IMPRESSION No active disease and no change from prior. Dictated by... Bladimir Mcrae Jr., M.D. THIS IS AN ELECTRONICALLY VERIFIED REPORT Bladimir Mcrae Jr., M.D. at 10/28/2016 5:50 AM AFTABK/bahman TD: 10/25/2016 10:38 JOB #: [id number] MEDICAL IMAGING REPORT Page 1 of 1 COPY
--- NOTE | ~2016-10-24 | MR113 ---
[facility] A Service of [facility] & [facility] RADIOLOGY TEXT RESULTS PATIENT: KRISTIAN MOORE LOCATION: [facility] : 66 UNIT #: [id number] AGE: [address]: Shakeel Worthington MD SEX: M ORDER DR: [id number] [facility] [address] [place], [place] [address] [id number] MR#: [id number] Acc #: [id number] NAME: KRISTIAN MOORE : 1970 SEX: M STUDY DATE/TIME: 10/25/2016 7:05 UNIT: [facility] ROOM: STUDY DESCRIPTION: MR Lumbar Wo Contrast Attending Physician: Shakeel Worthington M.D. Ordering Physician: Annalisa Aldridge M.D. Primary Care Physician: Berry Short Jr., A.P.R.N. MRI CENTER REPORT This report is preliminary unless electronic signature is present. EXAM MRI of the lumbar spine without contrast dated 10/25/2016 COMPARISON MRI lumbar spine without contrast dated 10/01/2016. HISTORY Low back pain with left leg pain for 2 months. Diagnosed with lung cancer 1 month ago. FINDINGS Multisequence, multiplanar imaging of the lumbar spine was obtained without contrast. Vertebral body heights and alignment are preserved. Degenerative disc disease is seen from L2-3 to L4-5 levels. Conus terminates at T12-L1. Signal of conus and cauda equina are within normal limits. Pre- and paravertebral soft tissues do not demonstrate any significant abnormality. No bony mass, fracture, or subluxation. Conus terminates at T12-L1. L1-2: Unremarkable. L2-3: Moderate concentric disc bulge with superimposed central disc extrusion with mild inferior migration. It has a height of 1.5 cm. Borderline size to mild canal stenosis is seen. The disc bulge is slightly prominent in bilateral foraminal to extraforaminal regions in L2-3 suggestive of superimposed broad-based protrusions with avxp-sn-wlwshdur bilateral neural foraminal narrowing. It is best seen in the sagittal images. L3-4: Moderate disc bulge with superimposed central disc extrusion with mild superior and inferior migration with a height of 2.0 cm. Left foraminal moderate protrusion/small extrusion is noted impinging on the STS. [facility] A Service of [facility] RADIOLOGY TEXT RESULTS PATIENT: KRISTIAN MOORE LOCATION: [facility] : 66 UNIT #: [id number] AGE: [address]: Shakeel Worthington MD SEX: M ORDER DR: exiting left L3 nerve root. There is moderate canal stenosis, iruc-rr-tokfajjw left and mild right neural foraminal narrowing. L4-5: Concentric disc bulge with superimposed right foraminal moderate protrusion/extrusion with impingement on the right exiting L4 nerve root. Moderate right and mild left neural foraminal narrowing are seen. Borderline size canal is noted with mild right lateral recess encroachment. L5-S1: Concentric disc bulge with superimposed central to left extraforaminal broad-based protrusion, most prominent in the left foraminal region suggestive of superimposed extrusion. There is nirxxioz-eq-umhzqz left neural foraminal narrowing without any canal stenosis. Mild right facet hypertrophic change. IMPRESSION 1. Degenerative disc disease is noted at multiple levels as described above, worse from L3-4 to L5-S1 with varying degrees of disc herniations, canal stenosis and neural foraminal narrowing as described above. They do not appear to have significantly worsened when compared to the prior study from last month, given the differences in slice selection. 2. No fracture, subluxation or edematous bony change. Dictated by... Alicia Velazquez M.D. THIS IS AN ELECTRONICALLY VERIFIED REPORT Alicia Velazquez M.D. at 10/29/2016 11:35 AM CPR/alan TD: 10/25/2016 12:48 JOB #: [id number] MRI CENTER REPORT Page 1 of 1 COPY
--- NOTE | ~2016-10-24 | CT98 ---
[facility] A Service of [facility] & [facility] RADIOLOGY TEXT RESULTS PATIENT: KRISTIAN MOORE LOCATION: [facility] : 66 UNIT #: [id number] AGE: [address]: Shakeel Worthington MD SEX: M ORDER DR: [id number] [facility] [address] [place], [place] [address] [id number] E MR#: [id number] Acc #: [id number] NAME: KRISTIAN MOORE : 1970 SEX: M STUDY DATE/TIME: 10/25/2016 03:28 UNIT: [facility] ROOM: STUDY DESCRIPTION: CT Lumbar Spine Wo Cont Attending Physician: Shakeel Worthington M.D. Ordering Physician: Annalisa Aldridge M.D. Primary Care Physician: Berry Short Jr., A.P.R.N. MEDICAL IMAGING REPORT This report is preliminary unless electronic signature is present EXAM Lumbar spine CT 10/25 at 03:28 INDICATION Sciatic nerve pain worse today. Left lower extremity radiculopathy. Symptoms for at least 3 days. History of lung cancer. No trauma. TECHNIQUE Axial images were obtained through the lumbar spine without contrast. Comparison made with reformatted CT images from 09/20/2016. This CT examination was performed with one or more of the following radiation dose reduction techniques: automatic exposure control, adjustment of mA and/or kV according to patient size, and iterative reconstruction. FINDINGS No fracture or subluxation is seen. At L5-S1, there is a broad-based posterior disc bulge eccentric to the left side. This is contacting the left S1 root. It is causing moderate right and severe left foraminal stenosis. There is bilateral facet arthropathy at this level. No central stenosis is seen. At L4-5, there is a broad-based posterior disc bulge with bilateral facet arthropathy. There is mild left and moderate to severe right-side foraminal narrowing. No central stenosis. At L3-4, there is a broad-based posterior disc bulge with some mild facet arthropathy. This results in mild to moderate narrowing of both foramina but no central stenosis. At L2-3, there is a broad-based posterior disc bulge with facet arthropathy. There is mild bilateral foraminal narrowing but no central stenosis. [facility] A Service of [facility] RADIOLOGY TEXT RESULTS PATIENT: KRISTIAN MOORE LOCATION: [facility] : 66 UNIT #: [id number] AGE: [address]: Shakeel Worthington MD SEX: M ORDER DR: At L1-2, the disc is normal. No central canal or foraminal stenosis. At T12-L1, the disc is normal. There is no central canal or neural foraminal stenosis. IMPRESSION 1. No fracture or malalignment. 2. Multilevel degenerative disc disease and facet arthropathy as detailed above. This results in bilateral foraminal stenosis at multiple levels. No significant central canal stenosis is seen at any level. The symptomatic level may be the L5-S1 level. 3. Overall, the exam does not appear significantly change from reformatted CT images dated 09/20/2016. These findings could be further assessed with outpatient lumbar MRI if clinically indicated. Dictated by... Bladimir Mcrae Jr., M.D. THIS IS AN ELECTRONICALLY VERIFIED REPORT Bladimir Mcrae Jr., M.D. at 10/28/2016 5:51 AM PETRA/alan TD: 10/25/2016 11:01 JOB #: [id number] MEDICAL IMAGING REPORT Page 1 of 1 COPY
--- NOTE | ~2016-10-24 | CR181 ---
[facility] A Service of [facility] & [facility] RADIOLOGY TEXT RESULTS PATIENT: KRISTIAN MOORE LOCATION: [facility] : 66 UNIT #: [id number] AGE: [address]: Shakeel Worthington MD SEX: M ORDER DR: [id number] [facility] [address] [place], [place] [address] [id number] E MR#: [id number] Acc #: [id number] NAME: KRISTIAN MOORE : 1970 SEX: M STUDY DATE/TIME: 10/25/2016 00:55 UNIT: [facility] ROOM: STUDY DESCRIPTION: CR Lumbar Spine 2 or 3 Views Attending Physician: Shakeel Worthington M.D. Ordering Physician: Amanda Leija M.D. Primary Care Physician: Berry Short Jr., A.P.R.N. MEDICAL IMAGING REPORT This report is preliminary unless electronic signature is present EXAM Lumbar spine 10/25 at 00:55 INDICATION Back pain for 1 month worsening over time. History of lung cancer. FINDINGS Three views of the lumbar spine compared with 10/08/2016. No fracture or subluxation is seen. There is degenerative disc space narrowing and endplate spurring at multiple levels. Findings are stable. There is some atherosclerotic disease in the aorta. IMPRESSION Multilevel degenerative disease. No acute findings. No change from 10/08/2016. Dictated by... Bladimir Mcrae Jr., M.D. THIS IS AN ELECTRONICALLY VERIFIED REPORT Bladimir Mcrae Jr., M.D. at 10/28/2016 5:50 AM PETRA/alan TD: 10/25/2016 10:37 JOB #: [id number] MEDICAL IMAGING REPORT Page 1 of 1 COPY
[2016-10-25 01:39] LABS: POC - CKMB 1.6 ng/mL (0.0-7.9); POC - TROPONIN <0.05 ng/mL (<=0.05)
[2016-10-25 01:48] LABS: BASOPHIL% 0.6 % (0-2.5); EOSINOPHIL# 0.3 X10e3 (0-0.7); EOSINOPHIL% 6.5 % (0.0-7.0); HEMATOCRIT 38.6 % (38.0-50.0); HEMOGLOBIN 13.1 gm/dL (13.0-16.0); LYMPHOCYTE# 1.7 X10e3 (1.0-3.5); LYMPHOCYTE% 31.3 % (17.0-45.0); MEAN CORPUSCULAR HEMOGLOBIN 31.6 PG (28-34); MEAN PLATELET VOLUME 8.1 FL (6.5-11.5); MONOCYTE# 0.7 X10e3 (0-1.0); MONOCYTE% 12.2 % (3.0-12.0); NEUTROPHIL# 2.7 X10e3 (1.5-7.1); NEUTROPHIL% 49.4 % (40-75); PLATELET COUNT 290 X10e3 (140-420); RED BLOOD COUNT 4.15 X10e (3.90-5.60); RED CELL DISTRIBUTION WIDTH 14.2 % (11.0-15.5); WHITE BLOOD COUNT 5.4 X10e3 (4.0-10.5)
[2016-10-25 01:50] LABS: DIFF IND NO
[2016-10-25 02:01] LABS: PROTHROMBIN TIME (PATIENT) 10.9 SECONDS (10.0-11.7)
[2016-10-25 02:12] LABS: ALBUMIN SERUM 4.6 g/dL (3.5-5.0); ALCOHOL BLOOD <5 mg/dL ([, 0]); ALKALINE PHOSPHATASE 68 U/L (32-92); ALT (SGPT) 38 U/L (10-40); AST (SGOT) 25 U/L (10-42); BILIRUBIN, DIRECT 0.1 mg/dL (0.0-0.2); BILIRUBIN,INDIRECT 0.3 mg/dL (0.0-0.9); BILIRUBIN,TOTAL 0.4 mg/dL (0.2-2.0); BLOOD UREA NITROGEN 24 mg/dL (9-23); CALCIUM SERUM 9.3 mg/dL (8.4-10.2); CARBON DIOXIDE 28 mmol/L (22-31); CHLORIDE 101 mmol/L (100-111); CREATININE SERUM 0.8 mg/dL (0.6-1.4); GLOM FILT RATE Estimated 106.4 mL/min (>60); GLUCOSE FASTING 115 mg/dL (70-110); PROTEIN TOTAL SERUM 7.3 g/dL (6.0-8.3); SODIUM 138 mmol/L (135-145)
[2016-10-25 03:10] LABS: POC - CKMB 1.4 ng/mL (0.0-7.9); POC - TROPONIN <0.05 ng/mL (<=0.05)
[2016-10-25 04:41] LABS: URINE SOURCE CLEAN CATCH
[2016-10-25 04:57] LABS: AMPHETAMINE POS (NEG); BARBITURATES NEG (NEG); BENZODIAZEPINES NEG (NEG); COCAINE NEG (NEG); MARIJUANA NEG (NEG); OPIATES POS (NEG); TRICYCLIC ANTIDEPRESSANTS POS (NEG); U METHADONE NEG (NEG)
[2016-10-25 05:13] LABS: URINE APPEARANCE CLEAR; URINE BILIRUBIN NEG (NEG); URINE BLOOD NEG (NEG); URINE COLOR YELLOW; URINE GLUCOSE NORM (NORM); URINE KETONE NEG (NEG); URINE LEUKOCYTE ESTERASE NEG (NEG); URINE NITRATE NEG (NEG); URINE PROTEIN 1+ (NEG); URINE UROBILINOGEN NORM (NORM)
[2016-10-25 05:24] LABS: CULTURE INDICATED? NO; URBCS1 AUWI 0-2 /[HPF] (0-2); URINE BACTERIA AUWI NEG (NEGATIVE); URINE SQUAMOUS EPITHELIAL CELL FEW /[HPF]; UWBCS1 AUWI 0-2 (0-5)
[2016-10-25 05:25] LABS: URINE CRYSTALS CALCIUM OXALATE /[HPF]
[2016-11-27] MEDS ORDERED: PERCOCET10 PO ×2 (09:14→09:16)
[2016-12-02] MEDS ORDERED: ATIVAN PO (12:22)
[2016-12-02] MEDS ORDERED: PROTONIX PO (12:22)
[2016-12-02] MEDS ORDERED: CARAFATE1 GM PO (12:22)
== END 2016-10-25 08:44 | disposition home or self-care (01) ==
LOC: CED 23:38
PROVIDERS: Emergency Medicine
DX: M51.36 Other intervertebral disc degeneration, lumbar region (principal); F19.10 Other psychoactive substance abuse, uncomplicated; Z79.899 Other long term (current) drug therapy; Z91.041 Radiographic dye allergy status
CPT/HCPCS: 36415; 71010; 72100; 72131; 72148; 80048; 80076; 80307; 81003; 82553; 83605; 84484; 85025; 85610; 93005; 96365; 96375; 99284; G0480; J2270; J2405; J2543; J3260; J3370

== ENCOUNTER 2016-11-07 17:15 | Inpatient (IN) | payer OTHER ==
[~2016-11-07] VITALS: Ht 180.3 cm; Wt 84.0 kg
--- NOTE | ~2016-11-07 | DS ---
Unit #: [id number] #: [id number] Patient: KRISTIAN MOORE [id number] [address] [address] [id number] I MR#: [id number] NAME: KRISTIAN MOORE ROOM: 47 Age: 45 Sex: M Admission Date: 11/07/2016 : 1970 Discharge Date: 11/10/2016 Attending Physician: George Santos M.D. Primary Care Physician: Berry Short Jr., A.P.R.N. DISCHARGE SUMMARY PRINCIPAL DIAGNOSES 1. Sepsis present upon admission secondary to acute bronchitis. 2. Acute hypoxic respiratory failure, now resolved. 3. Chemotherapy-induced leukopenia. Status post Granix x1. Discharge white blood cell count 6.1. 4. Chemotherapy-induced thrombocytopenia. Discharge platelet count 116,000. 5. Normocytic anemia. Discharge hemoglobin 10.1. 6. Lung cancer currently undergoing chemotherapy and radiation with unknown agents. This is followed by Dr. Jhonathan Kumar. 7. Chronic systolic congestive heart failure without exacerbation. 8. Mild mitral regurgitation. 9. Mild tricuspid regurgitation. 10. Peptic ulcer disease. 11. Chemotherapy-induced nausea and vomiting, now resolved. 12. Chemotherapy-induced mucositis. 13. Hypokalemia. CONSULTANTS Consultants are none. PROCEDURES 1. Chest x-ray on November 08, 2016 without any acute infiltrate. 2. CT scan of abdomen and pelvis without contrast on November 07, 2016 with no acute intraabdominal or intrapelvic pathology. 3. Chest x-ray on November 07, 2016, again without any acute findings. CLINICAL HISTORY AND HOSPITAL COURSE Mr. Moore is a nice 45-year-old male with a history of lung cancer currently undergoing chemotherapy and radiation per Dr. Jhonathan Kumar. Patient following last chemotherapy, which was approximately 10 days ago, developed severe cough in addition to mouth pain. In the emergency department white blood cell count was found to be low at 3.2. Chest x-ray however was unremarkable. Patient was subsequently admitted. Patient was placed on IV fluids in addition to empiric broad-spectrum antibiotics. He remained afebrile throughout hospitalization but white blood cell count continued to drop. He received a single dose of Granix and white blood cell count is now increased to 6.1. He has remained afebrile throughout hospitalization but did have one elevated temperature of 100.1. However, followup chest x-ray continues to not reveal any acute findings. I am going to discharge him on Omnicef as noted below. I have discussed with the patient that he should be seen by Dr. Jhonathan hurt Unit #: [id number] #: [id number] Patient: KRISTIAN MOORE this week given chemotherapy is planned for November 20. Given he ended up hospitalized, perhaps holding chemotherapy for a short period and/or changing dose and/or chemotherapeutic agents would be in the patient's best interest. Patient did develop significant mucositis for which I placed on Thelma's Magic Mouthwash. He is tolerating some solids and I have encouraged him to continue his intake at home. I anticipate given his white blood cell count has improved that his mucositis should heal rather rapidly within the next few days. Patient also had acute respiratory failure but did not require any steroid therapy and this has resolved spontaneously. Patient will be discharged home later today. DISCHARGE CONDITION Stable. DISCHARGE STATUS Discharge to home. DISCHARGE MEDICATIONS 1. Omnicef capsules 300 mg p.o. b.i.d. Please note patient may open capsule and mix it into applesauce to eat. 2. Amitriptyline 25 mg at bedtime. 3. Zoloft 50 mg daily. 4. Bentyl 20 mg p.o. four times daily p.r.n. for abdominal cramping. 5. Percocet 10/325 mg one tablet p.o. q.4-6 h. p.r.n. for pain. 6. Omeprazole 20 mg daily. 7. Thelma's Magic Mouthwash 10 mL p.o. four times daily p.r.n. for mouth pain. DISCHARGE INSTRUCTIONS The patient was instructed to: 1. Increase his diet to regular as tolerated. 2. To refrain from any further tobacco use. FOLLOWUP Patient is to follow up with Dr. Jhonathan hurt this week to discuss hospitalization, perhaps further adjustment in chemotherapy and/or radiation. Patient should continue with radiation as previously scheduled on November 12, 2016. Time spent on discharge 33 minutes. Dictated by... Carine Chavez M.D. CELESTE/devika TD: 11/12/2016 15:22 JOB #: [id number] Unit #: [id number] #: [id number] Patient: KRISTIAN MOORE DISCHARGE SUMMARY Page 1 of 1 X Carine Chavez MD X DISCHARGE SUMMARY
--- NOTE | ~2016-11-07 | CR72 ---
[facility] A Service of [facility] & [facility] RADIOLOGY TEXT RESULTS PATIENT: KRISTIAN MOORE LOCATION: [facility] 327-01 : [birth year] UNIT #: [id number] AGE: [address]: George Santos MD SEX: M ORDER DR: [id number] [facility] [address] [place], [place] [address] [id number] I MR#: [id number] Acc #: [id number] NAME: KRISTIAN MOORE : 1970 SEX: M STUDY DATE/TIME: 11/07/2016 18:29 UNIT: [address] ROOM: [facility] STUDY DESCRIPTION: CR Chest Single View Portable Attending Physician: Dagoberto Bond M.D. Ordering Physician: Annalisa Aldridge M.D. Primary Care Physician: Berry Short Jr., A.P.R.N. MEDICAL IMAGING REPORT This report is preliminary unless electronic signature is present EXAM Portable chest HISTORY Cough, congestion, fever for 2 days. COMPARISON 10/15/1816 FINDINGS Portable view of the chest demonstrates moderate lung volume, satisfactory technique. A density projecting over the right thorax is felt to represent a combination of patient's indwelling venous Port-A-Cath an access tubing. There may be minimal right basilar atelectasis. No definite airspace disease or consolidation and no effusions. Heart and mediastinum unremarkable. No pneumothorax. Dictated by... Reid Osullivan M.D. THIS IS AN ELECTRONICALLY VERIFIED REPORT Reid Osullivan M.D. at 11/08/2016 6:54 PM JESSICA/kishore TD: 11/08/2016 02:29 JOB #: [id number] MEDICAL IMAGING REPORT Page 1 of 1 COPY
--- NOTE | ~2016-11-07 | CT4 ---
[facility] A Service of [facility] RADIOLOGY TEXT RESULTS PATIENT: KRISTIAN MOORE [facility]: [facility] : 66 UNIT #: [id number] AGE: [address]: George Santos MD SEX: M ORDER DR: [id number] [facility] [address] [place], [place] [address] [id number] I MR#: [id number] Acc #: [id number] NAME: KRISTIAN MOORE : 1970 SEX: M STUDY DATE/TIME: 11/07/2016 19:43 UNIT: C3A PCU ROOM: [facility] STUDY DESCRIPTION: CT Abd and Pelv Wo Cont Attending Physician: Dagoberto Bond M.D. Ordering Physician: Annalisa Aldridge M.D. Primary Care Physician: Berry Short Jr., A.P.R.N. MEDICAL IMAGING REPORT This report is preliminary unless electronic signature is present EXAM CT abdomen and pelvis without contrast. HISTORY Nausea, vomiting, abdominal pain. Diffuse abdominal pain, onset today. COMPARISON CT abdomen and pelvis, 09/20/2016. TECHNIQUE Axial images performed through the abdomen and pelvis without contrast. Multiplanar reconstructed images reviewed. This CT exam was performed with one or more of the following radiation dose reduction techniques: automatic exposure control, adjustment of mA and/or kV according to patient size, and iterative reconstruction. FINDINGS ABDOMEN: Lung bases unremarkable. Liver, spleen, gallbladder, pancreas, kidneys, and adrenal glands unremarkable. No free air or free fluid. Nonspecific mesenteric edema along the root of the mesentery. The visualized GI tract unremarkable. Aorta and IVC appear normal. PELVIS: Bladder, prostate unremarkable except for prostatic calcifications. Osseous structures unremarkable. IMPRESSION No definite acute intraabdominal or intrapelvic pathology. Nonspecific mesenteric edema along the root of the mesentery. This is similar to findings on the 09/20/2016 CT scan. [facility] A Service of [facility] RADIOLOGY TEXT RESULTS PATIENT: KRISTIAN MOORE LOCATION: [facility] : [birth year] UNIT #: [id number] AGE: [address]: George Santos MD SEX: M ORDER DR: Dictated by... Reid Osullivan M.D. THIS IS AN ELECTRONICALLY VERIFIED REPORT Reid Osullivan M.D. at 11/08/2016 6:54 PM JESSICA/bahman TD: 11/08/2016 04:13 JOB #: [id number] MEDICAL IMAGING REPORT Page 1 of 1 COPY
--- NOTE | ~2016-11-07 | HP ---
Unit #: [id number] #: [id number] Patient: KRISTIAN MOORE [id number] [address] [place], [place] [address] [id number] E MR#: [id number] NAME: KRISTIAN MOORE ROOM: Age: 45 Sex: M Admission Date: 11/07/2016 : 1970 Attending Physician: Annalisa Aldridge M.D. Primary Care Physician: Berry Short Jr., A.P.R.N. HISTORY AND PHYSICAL CHIEF COMPLAINT Cough. HISTORY This 45-year-old male with a nonischemic cardiomyopathy, currently being treated for lung cancer, is admitted for a severe cough. Patient received Phenergan in the ER for nausea, vomiting and cough and now is extremely somnolent. I have to arouse him multiple times to just answer yes or no. I am told by the ER physician that the patient is undergoing chemotherapy and radiation, last received chemotherapy about a week ago I believe. He presented to this emergency department tonight with intractable nausea and vomiting with a cough productive of greenish sputum. He was coughing so hard he developed laryngeal spasm. There were some crackles in his right lower lobe, therefore despite a negative chest x-ray and a negative CT scan of his abdomen and pelvis he was given Zosyn, vancomycin and tobramycin along with Dilaudid, Phenergan, IV fluids. He was last admitted to this facility five weeks ago but I believe this was just an overnight stay. He looks to be nontoxic on exam, is afebrile. PAST MEDICAL HISTORY 1. Nonischemic cardiomyopathy, ejection fraction 45% on echo 04/2011 with mild MR, TR. Cardiac catheterization 05/2014 revealed 20% to 30% RCA stenosis. 2. Recent EGC 09/2016 showing esophageal ulcers and superficial duodenal ulcers. 3. History of polysubstance abuse. 4. Chronic pain/DJD. 5. Lung cancer, I am unsure what type. Patient is undergoing chemotherapy and radiation by Dr. Barr. 6. Admission for seizure 09/2016. It does appear that the patient did have an MRI scan but without contrast which showed significant white matter disease but was unchanged. No definite evidence of metastatic disease. I am unsure if patient left AMA. I do not have a discharge summary, and he indicates that he is not taking antiepileptic drugs at this time. 7. Previous history of polysubstance abuse. 8. Appendectomy. 9. Removal of benign cyst from the back. 10. Left elbow surgery. 11. Right knee surgery. 12. Port in the right chest. Unit #: [id number] #: [id number] Patient: KRISTIAN MOORE ALLERGIES IV dye. HOME MEDICATIONS Home medications are uncertain. I have a med rec sheet but this is without verification, includes Zoloft 50 mg daily, diclofenac 75 mg b.i.d., Bentyl 20 mg q.i.d. p.r.n., omeprazole 20 mg daily, Elavil 25 mg q.h.s. and Percocet 10/325 q.4-6 h. p.r.n. FAMILY HISTORY CVA and CAD. SOCIAL HISTORY The patient lives with his girlfriend. He was smoking one pack per day of tobacco but stopped smoking. Previously did abuse drugs including cocaine and amphetamines, but I am unsure if he is abusing drugs at this time. REVIEW OF SYSTEMS Impossible to obtain as patient himself is quite somnolent. PHYSICAL EXAMINATION GENERAL: Somnolent, snoring, 45-year-old male that I have to prompt many times to wake up and answer questions. VITAL SIGNS: Temperature 98. Pulse 127. Respirations 16. Blood pressure 150/76. O2 saturation 98% on room air. HEENT: Eyes PERRLA, extraocular muscles are intact. Pharynx is benign. NECK: Supple, without adenopathy or thyromegaly. CHEST: Is clear although he does have a few crackles at the right base anteriorly. CARDIAC: Normal S1 and S2, without definite murmur, current heart rate is 97. ABDOMEN: Bowel sounds are present. No hepatosplenomegaly, tenderness or masses. EXTREMITIES: Without cyanosis, clubbing or edema. Pedal pulses are present. NEUROLOGIC EXAM: Patient is somnolent and snoring. I have to prompt him several times to wake up and answer questions. He answers yes and no and goes back to sleep. He has equal strength throughout. DIAGNOSTIC STUDIES ADMISSION LABS: Hematocrit is 29.3, down from 38.6 two weeks ago, white blood count is 3.2, platelet count is 131. Coags normal. SMA-12: Glucose 127, BUN 24, potassium 3.4, chloride is 98. Lactic acid is normal. Normal BNP. Negative cardiac enzymes, CARDIOVASCULAR: EKG sinus tachycardia, rate 120, otherwise normal. IMAGING: Chest x-ray no acute disease. CT scan of the abdomen and pelvis no acute disease. ASSESSMENT 1. Cough likely representing bronchitis, rule out occult pneumonia. 2. Nausea, vomiting, which may be related to chemotherapy. 3. Recent admission in September for seizures. I am unsure if patient is taking antiepileptic drugs. He indicates that he is not taking these and will contact his pharmacy. His urine tox screen was positive at that time for amphetamines. Unit #: [id number] #: [id number] Patient: KRISTIAN MOORE 4. Lung cancer of unknown type, currently undergoing chemotherapy and radiation. 5. History of nonischemic cardiomyopathy, ejection fraction 45%. 6. Peptic ulcer disease/esophagitis. 7. History of polysubstance abuse in the past. PLANS 1. Doxycycline and cefepime pending cultures. Patient received Zosyn, vancomycin and tobramycin. However, I believe he was only hospitalized for one or two days in September and no definite evidence on chest x-ray for pneumonia. Will also ask for a procalcitonin level, cultures and repeat chest x-ray in the morning. Deescalate antibiotics depending on above. 2. Urine tox screen. 3. IV fluid, supportive treatment. 4. Oncology consultation. 5. DVT prophylaxis. 6. Verify home medicines. Dictated by Dhara Keene M.D. AML/cf TD: 11/07/2016 23:03 JOB #: [id number] HISTORY AND PHYSICAL Page 1 of 1 X Dhara Keene MD X HISTORY AND PHYSICAL
--- NOTE | ~2016-11-07 | EKG ---
PATIENT: KRISTIAN MOORE UNIT #: [id number] Ventricular Rate: 120 BPM Atrial Rate: 120 BPM P-R Interval: 130 ms QRS Duration: 82 ms Q-T Interval: 326 ms QTC Calculation(Bezet): 460 ms P [place]: 66 degrees Calculated R [place]: 64 degrees Calculated T [place]: 32 degrees Diagnosis Line: Sinus tachycardia Diagnosis Line: Otherwise normal ECG Diagnosis Line: When compared with ECG of 25-OCT-2016 00:14, Diagnosis Line: No significant change was found Diagnosis Line: Confirmed by ANATOLIY RAMOS MD ([id number]) on Diagnosis Line: 11/08/2016 4:43:31 PM INTERPRETING MD: ASHER
--- NOTE | ~2016-11-07 | CR63 ---
[facility] A Service of [facility] RADIOLOGY TEXT RESULTS PATIENT: KRISTIAN MOORE LOCATION: [place] [address] : [birth year] UNIT #: [id number] AGE: [address]: George Santos MD SEX: M ORDER DR: [id number] [place] [id number] [facility]. [place], [place] [address] [id number] I MR#: [id number] Acc #: [id number] NAME: KRISTIAN MOORE : 1970 SEX: M STUDY DATE/TIME: 11/08/2016 8:51 UNIT: C3A PCU ROOM: [facility] STUDY DESCRIPTION: CR Chest 2 View Attending Physician: George Santos M.D. Ordering Physician: Dhara Keene M.D. Primary Care Physician: Berry Short Jr., A.P.R.N. MEDICAL IMAGING REPORT This report is preliminary unless electronic signature is present EXAM PA and lateral chest INDICATIONS Shortness of breath and chest pain for 3 days. Comparison with yesterday. FINDINGS Decreased inspiratory volume. No definite new infiltrate. Heart size stable. Stable chest port. IMPRESSION Decreased inspiratory volume. No acute infiltrate. Dictated by... Rustam Osullivan M.D. THIS IS AN ELECTRONICALLY VERIFIED REPORT Rustam Osullivan M.D. at 11/12/2016 7:21 AM STONE/marisol TD: 11/08/2016 09:59 JOB #: [id number] MEDICAL IMAGING REPORT Page 1 of 1 COPY
[2016-11-07 18:45] LABS: BASOPHIL% 0.1 % (0-2.5); EOSINOPHIL# 0.1 X10e3 (0-0.7); EOSINOPHIL% 3.8 % (0.0-7.0); HEMATOCRIT 29.3 % (38.0-50.0); HEMOGLOBIN 10.5 gm/dL (13.0-16.0); LYMPHOCYTE# 0.7 X10e3 (1.0-3.5); LYMPHOCYTE% 20.4 % (17.0-45.0); MEAN CELL VOLUME 91.9 FL (83-96); MEAN CORPUSCULAR HEMOGLOBIN 32.8 PG (28-34); MEAN CORPUSCULAR HGB CONC 35.7 g/dL (30-36); MEAN PLATELET VOLUME 7.8 FL (6.5-11.5); MONOCYTE# 0.2 X10e3 (0-1.0); MONOCYTE% 6.7 % (3.0-12.0); NEUTROPHIL# 2.2 X10e3 (1.5-7.1); PLATELET COUNT 131 X10e3 (140-420); RED BLOOD COUNT 3.19 X10e (3.90-5.60); RED CELL DISTRIBUTION WIDTH 13.4 % (11.0-15.5); WHITE BLOOD COUNT 3.2 X10e3 (4.0-10.5)
[2016-11-07 18:46] LABS: DIFF IND NO
[2016-11-07 18:56] LABS: INR 0.9; PARTIAL THROMBOPLASTIN TIME 24.7 SECONDS (23.5-31.3)
[2016-11-07 19:03] LABS: POC - CKMB 3.9 ng/mL (0.0-7.9); POC - TROPONIN <0.05 ng/mL (<=0.05)
[2016-11-07 19:10] LABS: ALBUMIN SERUM 3.9 g/dL (3.5-5.0); BILIRUBIN, DIRECT 0.1 mg/dL (0.0-0.2); BILIRUBIN,INDIRECT 0.4 mg/dL (0.0-0.9); BILIRUBIN,TOTAL 0.5 mg/dL (0.2-2.0); CALCIUM SERUM 8.8 mg/dL (8.4-10.2); CREATININE SERUM 0.6 mg/dL (0.6-1.4); GLOM FILT RATE Estimated 119.8 mL/min (>60); POTASSIUM 3.4 mmol/L (3.5-5.1); PROTEIN TOTAL SERUM 6.1 g/dL (6.0-8.3)
[2016-11-07 20:18] LABS: POC - CKMB 2.7 ng/mL (0.0-7.9); POC - TROPONIN <0.05 ng/mL (<=0.05)
[2016-11-08 00:20] LABS: ARTERIAL BLD GAS O2 SATURATION 94.5 % (90.0-100.0); ARTERIAL BLOOD GAS ART SITE LEFT BRACHIAL; ARTERIAL BLOOD GAS CARBOXY HB 1.4 %sat (0.0-9.0); ARTERIAL BLOOD GAS DELIVERY NASAL CANNULA; ARTERIAL BLOOD GAS HCO3 25.8 mmol/L; ARTERIAL BLOOD GAS MET HB 0.6 %sat (0.0-2.0); ARTERIAL BLOOD GAS PCO2 50.5 mmHg (35.0-45.0); ARTERIAL BLOOD GAS PO2 87.5 mmHg (80.0-100); ARTERIAL BLOOD GAS pH 7.317 (7.350-7.450); ARTERIAL DRAW? YES
[2016-11-08 06:33] LABS: HEMATOCRIT 26.7 % (38.0-50.0); HEMOGLOBIN 9.2 gm/dL (13.0-16.0); MEAN CORPUSCULAR HEMOGLOBIN 31.8 PG (28-34); MEAN CORPUSCULAR HGB CONC 34.2 g/dL (30-36); MEAN PLATELET VOLUME 7.7 FL (6.5-11.5); RED BLOOD COUNT 2.87 X10e (3.90-5.60); RED CELL DISTRIBUTION WIDTH 13.2 % (11.0-15.5); WHITE BLOOD COUNT 2.3 X10e3 (4.0-10.5)
[2016-11-08 07:16] LABS: BLOOD UREA NITROGEN 14 mg/dL (9-23); CALCIUM SERUM 7.6 mg/dL (8.4-10.2); CARBON DIOXIDE 25 mmol/L (22-31); CHLORIDE 106 mmol/L (100-111); CREATININE SERUM 0.4 mg/dL (0.6-1.4); GLOM FILT RATE Estimated 141.5 mL/min (>60); GLUCOSE FASTING 87 mg/dL (70-110); POTASSIUM 3.9 mmol/L (3.5-5.1); SODIUM 137 mmol/L (135-145)
[2016-11-08 07:42] LABS: PROCALCITONIN <0.05 NG/ML
[2016-11-08 08:12] LABS: URINE SOURCE CLEAN CATCH
[2016-11-08 08:18] LABS: URINE APPEARANCE CLEAR; URINE BILIRUBIN NEG (NEG); URINE BLOOD NEG (NEG); URINE COLOR YELLOW; URINE GLUCOSE NEG (NEG); URINE KETONE NEG (NEG); URINE LEUKOCYTE ESTERASE NEG (NEG); URINE NITRATE NEG (NEG); URINE PROTEIN NEG (NEG); URINE SPECIFIC GRAVITY 1.025 (1.003-1.035); URINE UROBILINOGEN 0.2 MG/DL (NEG)
[2016-11-08 08:32] LABS: CULTURE INDICATED? NO
[2016-11-09 06:11] LABS: HEMATOCRIT 28.3 % (38.0-50.0); HEMOGLOBIN 9.9 gm/dL (13.0-16.0); MEAN CELL VOLUME 92.5 FL (83-96); MEAN CORPUSCULAR HEMOGLOBIN 32.5 PG (28-34); MEAN CORPUSCULAR HGB CONC 35.1 g/dL (30-36); MEAN PLATELET VOLUME 7.6 FL (6.5-11.5); RED BLOOD COUNT 3.06 X10e (3.90-5.60); RED CELL DISTRIBUTION WIDTH 12.8 % (11.0-15.5); WHITE BLOOD COUNT 1.8 X10e3 (4.0-10.5)
[2016-11-09 06:50] LABS: CALCIUM SERUM 8.3 mg/dL (8.4-10.2); CREATININE SERUM 0.6 mg/dL (0.6-1.4); GLOM FILT RATE Estimated 119.8 mL/min (>60); POTASSIUM 4.2 mmol/L (3.5-5.1)
[2016-11-10 06:51] LABS: BASOPHIL% 0.2 % (0-2.5); EOSINOPHIL# 0.1 X10e3 (0-0.7); EOSINOPHIL% 1.6 % (0.0-7.0); HEMATOCRIT 28.8 % (38.0-50.0); HEMOGLOBIN 10.1 gm/dL (13.0-16.0); LYMPHOCYTE# 0.6 X10e3 (1.0-3.5); LYMPHOCYTE% 10.3 % (17.0-45.0); MEAN CELL VOLUME 92.1 FL (83-96); MEAN CORPUSCULAR HEMOGLOBIN 32.3 PG (28-34); MEAN CORPUSCULAR HGB CONC 35.1 g/dL (30-36); MEAN PLATELET VOLUME 7.7 FL (6.5-11.5); MONOCYTE# 0.3 X10e3 (0-1.0); MONOCYTE% 4.4 % (3.0-12.0); NEUTROPHIL# 5.1 X10e3 (1.5-7.1); NEUTROPHIL% 83.5 % (40-75); PLATELET COUNT 116 X10e3 (140-420); RED BLOOD COUNT 3.13 X10e (3.90-5.60); RED CELL DISTRIBUTION WIDTH 13.1 % (11.0-15.5)
[2016-11-10 06:58] LABS: DIFF IND NO; WHITE BLOOD COUNT 6.1 X10e3 (4.0-10.5)
[2016-11-10] MEDS ORDERED: OMNICEF300 MG PO (17:10)
[2016-11-10] MEDS ORDERED: LIDOCAINE HCL 220 ML PO (17:14)
[2016-11-27] MEDS ORDERED: PERCOCET10 PO ×2 (09:14→09:16)
[2016-12-02] MEDS ORDERED: ATIVAN PO (12:22)
[2016-12-02] MEDS ORDERED: PROTONIX PO (12:22)
[2016-12-02] MEDS ORDERED: CARAFATE1 GM PO (12:22)
== END 2016-11-10 17:46 | disposition home or self-care (01) | DRG 871 ==
LOC: CED 17:15 → CEDOF 22:00 → CED 22:47 → SEDOF 22:55 → C3A PCU 23:26 → CEDOF 23:26 → C3A PCU 11-08 06:01 → C4C 11-10 13:40
PROVIDERS: Emergency Medicine; Internal Medicine
DX: A41.9 Sepsis, unspecified organism (principal); J96.01 Acute respiratory failure with hypoxia; D61.810 Antineoplastic chemotherapy induced pancytopenia; I50.22 Chronic systolic (congestive) heart failure; D69.59 Other secondary thrombocytopenia; I08.1 Rheumatic disorders of both mitral and tricuspid valves; C34.90 Malignant neoplasm of unspecified part of unspecified bronchus or lung; E86.0 Dehydration; J20.9 Acute bronchitis, unspecified; T45.1X5A Adverse effect of antineoplastic and immunosuppressive drugs, initial encounter; Z87.891 Personal history of nicotine dependence; Y92.9 Unspecified place or not applicable; D64.9 Anemia, unspecified; R11.2 Nausea with vomiting, unspecified; K12.31 Oral mucositis (ulcerative) due to antineoplastic therapy; E87.6 Hypokalemia; Z82.49 Family history of ischemic heart disease and other diseases of the circulatory system; Z82.3 Family history of stroke; Z91.041 Radiographic dye allergy status; K27.9 Peptic ulcer, site unspecified, unspecified as acute or chronic, without hemorrhage or perforation
CPT/HCPCS: 36415; 36600; 71010; 71020; 74176; 80048; 80076; 81003; 82308; 82553; 82803; 82947; 83605; 83690; 83880; 84484; 85025; 85027; 85610; 85730; 87040; 93005; 94640; 94760; 96365; 96366; 96367; 96368; 96375; 99285; C9113; J0692; J1170; J1447; J1642; J1650; J2270; J2405; J2543; J2550; J3260; J3370

== ENCOUNTER 2016-11-16 14:50 | Observation (INO) | payer OTHER ==
[~2016-11-16] VITALS: Ht 180.3 cm; Wt 79.6 kg
--- NOTE | ~2016-11-16 | CO ---
Unit #: [id number] #: [id number] Patient: KRISTIAN MOORE [id number] [address] [place], [place] [address] [id number] I MR#: [id number] NAME: KRISTIAN MOORE ROOM: 325 Age: 45 Sex: M Admission Date: 11/16/2016 : 1970 Attending Physician: Sandra Kruger M.D. Primary Care Physician: Berry Short Jr., A.P.R.N. Consultation Date: 11/19/2016 CONSULTATION REPORT REASON FOR EVALUATION Lung cancer, please evaluate. HISTORY OF PRESENT ILLNESS A 45-year-old gentleman with limited small cell lung CA followed by my partner Dr. hJonathan Kumar in our office, has intractable nausea, intractable pain, currently on chemoradiotherapy. His last dose of chemotherapy was about two weeks ago and he is due for his next dose of carboplatin/etoposide on November 20, 2016. Was admitted to this facility with cough, nausea which has all improved and he is ready to be discharged to be followed as an outpatient. Today on questioning, he says the nausea is much improved. He has not had any emesis today and did eat breakfast, mainly liquid breakfast. PAST MEDICAL HISTORY 1. Small cell lung CA, limited in nature, on chemoradiotherapy. 2. History of noncompliance and demanding pain medications. 3. Past history of cardiomyopathy. 4. Duodenal ulcer. 5. Polysubstance abuse in the past. CHRONIC MEDICATIONS 1. Zoloft. 2. Diclofenac. 3. Bentyl. 4. Percocet. 5. Omeprazole. 6. Elavil. ALLERGIES IV dye. FAMILY HISTORY Negative for cluster of cancers. Positive for coronary artery disease, hypertension, and CVA. SOCIAL HISTORY He is unemployed. Lives with a girlfriend. Does have a history of abuse of drugs including cocaine, amphetamine, etc. REVIEW OF SYSTEMS Nausea, intractable pain, mainly patient complaining, does not appear to be in pain. Otherwise six or eight systems were within normal limits on exam. Alopecia is moderate. No palpable nodes. Unit #: [id number] #: [id number] Patient: KRISTIAN MOORE Lungs are surprisingly clear. Cardiovascular: Distant S1, S2. Abdomen: No organomegaly. DIE REPAIR MACHINIST: Grossly intact. Rectal was not done. DIAGNOSTIC STUDIES LABORATORY: CBC: Hemoglobin 10.4, hematocrit 29.6, white count 4200, platelets 262,000. Sodium 137, potassium 3.9, chloride 104, CO2 of 29, glucose 72, BUN 13, creatinine 0.5. IMPRESSION 1. History of limited small cell lung cancer. 2. Intractable nausea and vomiting, intractable pain. 3. History of polysubstance abuse. 4. Duodenal ulcer by history. PLAN Continue current medications. I am going to ask the primary care physician to allow the patient to go home as he is due for outpatient chemotherapy tomorrow and subsequent three days. Benefits, risks were explained. He is in full agreement. Will pick him up in the office. Dictated by... Deniz Barr M.D. ALBERTINA/eladia TD: 11/19/2016 15:50 JOB #: [id number] CONSULTATION REPORT Page 1 of 1 X Deniz Barr MD X CONSULTATION REPORT
--- NOTE | ~2016-11-16 | CR72 ---
[facility] A Service of [facility] RADIOLOGY TEXT RESULTS PATIENT: KRISTIAN MOORE LOCATION: [address] : [birth year] UNIT #: [id number] AGE: [address]: George Santos MD SEX: M ORDER DR: [id number] [facility] [address] [facility]. [place], [place] [address] [id number] I MR#: [id number] Acc #: [id number] NAME: KRISTIAN MOORE : 1970 SEX: M STUDY DATE/TIME: 11/16/2016 16:33 [facility]: [facility] STUDY DESCRIPTION: CR Chest Single View Portable Attending Physician: George Santos M.D. Ordering Physician: Amanda Leija M.D. Primary Care Physician: Berry Short Jr., A.P.R.N. MEDICAL IMAGING REPORT This report is preliminary unless electronic signature is present EXAM AP portable chest 11/16/2016 at 16:33 HISTORY 45-year-old male with chest pain, shortness of breath, nausea, vomiting for 1 day. History of lung cancer. 30-year smoking history. COMPARISON AP portable chest 11/08/2016. FINDINGS Right chest wall priya catheter extends to the SVC. No pneumothorax is seen. Asymmetric soft tissue prominence in the right perihilar region may correspond to pathologic adenopathy seen in this location n the previous CT chest of 08/19/2016. No acute airspace disease is identified. Normal heart size. No pleural effusion or pneumothorax is evident. IMPRESSION 1. No acute airspace disease. 2. Asymmetric soft tissue prominence or thickening in the right hilar region may correspond to pathologic adenopathy is seen in this location on previous CT chest 08/19/2016. Dictated by... Cristine Bond M.D. THIS IS AN ELECTRONICALLY VERIFIED REPORT Cristine Bond M.D. at 11/17/2016 7:46 PM LLH/elio TD: 11/17/2016 17:05 JOB #: [id number] [facility] A Service of [facility] RADIOLOGY TEXT RESULTS PATIENT: KRISTIAN MOORE [facility]ATION: C3A [facility] [id number] : [birth year] UNIT #: [id number] AGE: [address]: George Santos MD SEX: M ORDER DR: MEDICAL IMAGING REPORT Page 1 of 1 COPY
--- NOTE | ~2016-11-16 | DS ---
Unit #: [id number] #: [id number] Patient: KRISTIAN MOORE [id number] [address] [address] [id number] I MR#: [id number] NAME: KRISTIAN MOORE ROOM: 325 Age: 45 Sex: M Admission Date: 11/16/2016 : 1970 Discharge Date: 11/19/2016 Attending Physician: Sandra Kruger M.D. Primary Care Physician: Berry Short Jr., A.P.R.N. DISCHARGE SUMMARY DIAGNOSIS ON ADMISSION Intractable nausea, vomiting. DIAGNOSES ON DISCHARGE 1. Intractable nausea, vomiting. 2. Small cell lung carcinoma. 3. Depression. 4. History of distal esophageal cancer. 5. Gastroesophageal reflux disease. 6. History of nonischemic cardiomyopathy. 7. Chronic pain syndrome. 8. Seizure disorder. 9. History of polysubstance abuse. CONSULTATIONS Dr. Barr in oncology consultation. LABS AND PROCEDURES DONE LABS: Patient's creatinine is 0.5, sodium is 137, potassium is 3.9. WBC is 4.2, hemoglobin is 10.4, platelet count is 262. Magnesium level was 1.5. BNP was 35. HOSPITAL COURSE Gudqa-zhopa-vbpj-old male was admitted to [facility] with intractable nausea, vomiting. Details are as per admission H and P. Patient was treated symptomatically with IV fluids. Patient has responded well, and his nausea, vomiting is improved. It could be secondary to patient's lung cancer. Patient was seen by Dr. Barr in consultation, who has recommended that patient can be discharged home and can follow up with him on outpatient basis to have his chemotherapy as scheduled for tomorrow. PHYSICAL EXAMINATION VITAL SIGNS: Today on physical examination, patient's vital signs reveal temperature 97.8. Pulse is 96 per minute. Respiratory rate is 16 per minute. Blood pressure 107/76. HEENT: HEENT examination revealed no conjunctival congestion. Sclera is nonicteric. NECK: Neck is supple. Trachea is central. RESPIRATORY: Respiratory examination revealed decreased breath sounds bilaterally. There are no wheezes or crackles. HEART: Heart is regular rate and rhythm. S1, S2. ABDOMEN: Abdomen is soft, nontender. Bowel sounds are present in all 4 quadrants. EXTREMITIES: Extremities reveal no pedal edema. Unit #: [id number] #: [id number] Patient: KRISTIAN MOORE SKIN: Skin is warm and dry. RECOMMENDATIONS ON DISCHARGE 1. Condition is stable. 2. Activity as tolerated. DISCHARGE MEDICATIONS Medications are: 1. Dexamethasone 4 mg p.o. daily. 2. Amitriptyline 25 mg p.o. q.h.s. 3. Zoloft 50 mg p.o. daily. 4. Phenergan 25 mg p.o. q.4 hours p.r.n., which is patient's home dose. 5. Bentyl 20 mg p.o. 4 times a day p.r.n. 6. Lidocaine solution 30 mL p.o. t.i.d. before meals p.r.n. 7. MS Contin 30 mg p.o. t.i.d. 8. Prilosec 20 mg p.o. daily. DISPOSITION Patient will be discharged home with follow up with oncology as scheduled tomorrow for chemotherapy. Patient was advised to call primary care physician or go to ER if his condition changes. Patient is advised to follow up with primary care physician in 1 week and with oncology as scheduled tomorrow. The plan was discussed in detail with patient, who showed complete understanding. Dictated by... Justine Romano/savannah TD: 11/19/2016 15:15 JOB #: [id number] CC: Deniz Barr M.D. DISCHARGE SUMMARY Page 1 of 1 X Sandra Kruger MD X DISCHARGE SUMMARY
--- NOTE | ~2016-11-16 | EKG ---
PATIENT: KRISTIAN MOORE UNIT #: [id number] Ventricular Rate: 124 BPM Atrial Rate: 124 BPM P-R Interval: 150 ms QRS Duration: 80 ms Q-T Interval: 322 ms QTC Calculation(Bezet): 462 ms P [place]: 57 degrees Calculated R [place]: 40 degrees Calculated T [place]: 52 degrees Diagnosis Line: Sinus tachycardia Diagnosis Line: Biatrial enlargement Diagnosis Line: Abnormal ECG Diagnosis Line: When compared with ECG of 07-NOV-2016 17:22, Diagnosis Line: No significant change was found Diagnosis Line: Confirmed by KVNG MERCADO MD ([id number]) on 11/17/2016 Diagnosis Line: 11:05:32 PM INTERPRETING MD: JESS MUNOZ
--- NOTE | ~2016-11-16 | HP ---
Unit #: [id number] #: [id number] Patient: KRISTIAN MOORE [id number] [address] [address] [id number] I MR#: [id number] NAME: KRISTIAN MOORE ROOM: 325 Age: 45 Sex: M Admission Date: 11/16/2016 : 1970 Attending Physician: George Santos M.D. Primary Care Physician: Berry Short Jr., A.P.R.N. HISTORY AND PHYSICAL CHIEF COMPLAINT Nausea, vomiting, and diarrhea. HISTORY OF PRESENT ILLNESS The patient is a 45-year-old male, with history of nonischemic cardiomyopathy, currently being treated for colon cancer, was recently discharged from the hospital on November 10, with sepsis secondary to acute bronchitis, and chemotherapy induced leukopenia. The patient woke up this morning and started complaining of the nausea and vomiting associated with diarrhea. The patient was scheduled to follow with his cancer doctor but has not yet followed up. The patient denies any fevers or chills, and the patient has had some vomiting, and the patient noted some blood streaks in the vomiting. The patient is being admitted for the above reasons. PAST MEDICAL HISTORY History of nonischemic cardiomyopathy with ejection fraction of 45%, and recent esophagogastroduodenoscopy on 09/2016 showing esophageal ulcer and superficial duodenal ulcer, history of polysubstance abuse, chronic pain, lung cancer, and seizures, and polysubstance. PAST SURGICAL HISTORY Appendectomy, removal of benign cyst on the back, left elbow surgery, right knee surgery, port in the right chest. ALLERGIES IV dyes. HOME MEDICATIONS The patient is on: 1. Zoloft 2. Bentyl 3. Omeprazole 4. Amitriptyline 5. Oxycodone 6. Omnicef 7. Lidocaine FAMILY HISTORY Positive for CVA and SANDY. SOCIAL HISTORY The patient lives with his girlfriend. He was smoking one pack per day of tobacco but has stopped smoking. Previously abused drugs including Unit #: [id number] #: [id number] Patient: KRISTIAN MOORE cocaine and amphetamines. REVIEW OF SYSTEMS Positive for nausea and vomiting, and diarrhea, and positive for weakness, positive for dehydration and denies any chest pain, denies any shortness of breath, and all other systems are reviewed and are negative except as mentioned in the history of present illness. PHYSICAL EXAMINATION GENERAL: The patient is lying on the bed, not in acute distress. VITALS: Temperature 98.1, pulse 131, respiratory rate 24, and blood pressure is 131/113, satting 100% at room air. HEENT: Head: Atraumatic and normocephalic. Pupils equal, round, reactive to light and accommodation. LUNGS: Decreased air entry at the bases. Coarse breath sounds. HEART: Regular rate and rhythm. Tachycardic. ABDOMEN: Soft, positive bowel sounds. EXTREMITIES: No cyanosis, no clubbing. NEURO: Alert, awake, oriented, no gross focal motor deficit. DIAGNOSTIC STUDIES LABORATORY DATA: WBCs 3.7, hemoglobin 13.1, hematocrit 37, platelets 236, and troponin less than 0.05, BNP is 35, and sodium was 139, potassium of 3, chloride 103, bicarb 27, glucose 130, BUN 4, creatinine 0.6, calcium is 9.4, AST 26, ALT 45, alkaline phosphatase 77, lipase 29, amylase 29. ASSESSMENT/PLAN 1. Nausea and vomiting. 2. Hypokalemia. 3. History of lung cancer, status post chemo and radiation. Plan to admit the patient to the observation telemetry, continue with the IV fluids and continue with the Zofran for the nausea and vomiting, and will replace the potassium per protocol, and repeat the labs again in the morning, and further recommendations will follow, and consult the patient's oncology as outpatient once the patient is discharged and further recommendations will follow. Dictated by Justine Juarez TD: 11/17/2016 12:46 JOB #: [id number] Unit #: [id number] #: [id number] Patient: KRISTIAN MOORE HISTORY AND PHYSICAL Page 1 of 1 X ANA MARÍA RUSSO MD X HISTORY AND PHYSICAL
[~2016-11-16 14:50] MED LIST changes: +LIDOCAINE HCL 220 ML PO; +OMNICEF300 MG PO
[2016-11-16 16:41] LABS: BASOPHIL% 0.3 % (0-2.5); HEMOGLOBIN 13.1 gm/dL (13.0-16.0); LYMPHOCYTE# 0.5 X10e3 (1.0-3.5); LYMPHOCYTE% 14.7 % (17.0-45.0); MEAN CELL VOLUME 91.7 FL (83-96); MEAN CORPUSCULAR HEMOGLOBIN 32.6 PG (28-34); MEAN CORPUSCULAR HGB CONC 35.5 g/dL (30-36); MEAN PLATELET VOLUME 7.7 FL (6.5-11.5); MONOCYTE# 0.6 X10e3 (0-1.0); MONOCYTE% 15.8 % (3.0-12.0); NEUTROPHIL# 2.5 X10e3 (1.5-7.1); NEUTROPHIL% 68.2 % (40-75); PLATELET COUNT 236 X10e3 (140-420); RED BLOOD COUNT 4.03 X10e (3.90-5.60); RED CELL DISTRIBUTION WIDTH 14.1 % (11.0-15.5); WHITE BLOOD COUNT 3.7 X10e3 (4.0-10.5)
[2016-11-16 16:43] LABS: DIFF IND NO
[2016-11-16 16:59] LABS: POC - CKMB 2.1 ng/mL (0.0-7.9); POC - TROPONIN <0.05 ng/mL (<=0.05)
[2016-11-16 17:16] LABS: ALBUMIN SERUM 4.4 g/dL (3.5-5.0); BILIRUBIN, DIRECT 0.1 mg/dL (0.0-0.2); BILIRUBIN,INDIRECT 0.8 mg/dL (0.0-0.9); BILIRUBIN,TOTAL 0.9 mg/dL (0.2-2.0); BUN/CREATININE RATIO 23.33; CALCIUM SERUM 9.4 mg/dL (8.4-10.2); CREATININE SERUM 0.6 mg/dL (0.6-1.4); GLOM FILT RATE Estimated 119.8 mL/min (>60); PROTEIN TOTAL SERUM 7.3 g/dL (6.0-8.3)
[2016-11-16] MEDS ORDERED: MS CONTIN30 MG PO (20:00)
[2016-11-16] MEDS ORDERED: PHENERGAN25 M1 PO (20:02)
[2016-11-16] MEDS ORDERED: DEXAMETHASONE4 M1 PO (20:02)
[2016-11-17 09:05] LABS: BASOPHIL% 0.3 % (0-2.5); EOSINOPHIL# 0.1 X10e3 (0-0.7); EOSINOPHIL% 3.4 % (0.0-7.0); HEMATOCRIT 31.3 % (38.0-50.0); LYMPHOCYTE# 0.6 X10e3 (1.0-3.5); LYMPHOCYTE% 26.9 % (17.0-45.0); MEAN CELL VOLUME 92.6 FL (83-96); MEAN CORPUSCULAR HEMOGLOBIN 32.4 PG (28-34); MEAN PLATELET VOLUME 7.1 FL (6.5-11.5); MONOCYTE# 0.3 X10e3 (0-1.0); MONOCYTE% 13.5 % (3.0-12.0); NEUTROPHIL# 1.2 X10e3 (1.5-7.1); NEUTROPHIL% 55.9 % (40-75); PLATELET COUNT 204 X10e3 (140-420); RED BLOOD COUNT 3.38 X10e (3.90-5.60); RED CELL DISTRIBUTION WIDTH 14.3 % (11.0-15.5); WHITE BLOOD COUNT 2.2 X10e3 (4.0-10.5)
[2016-11-17 09:07] LABS: DIFF IND YES
[2016-11-17 09:19] LABS: BUN/CREATININE RATIO 11.66; CALCIUM SERUM 8.2 mg/dL (8.4-10.2); CREATININE SERUM 0.6 mg/dL (0.6-1.4); GLOM FILT RATE Estimated 119.8 mL/min (>60); POTASSIUM 3.6 mmol/L (3.5-5.1)
[2016-11-17 09:33] LABS: PLATELET ESTIMATE NORMAL (NORMAL)
[2016-11-17 09:58] LABS: URINE SOURCE CLEAN CATCH
[2016-11-17 10:12] LABS: URINE APPEARANCE CLEAR; URINE BILIRUBIN NEG (NEG); URINE BLOOD NEG (NEG); URINE COLOR YELLOW; URINE GLUCOSE NEG (NEG); URINE KETONE TRACE (NEG); URINE LEUKOCYTE ESTERASE NEG (NEG); URINE NITRATE NEG (NEG); URINE PH 6.5 (5-8); URINE PROTEIN NEG (NEG); URINE SPECIFIC GRAVITY 1.022 (1.003-1.035); URINE UROBILINOGEN 0.2 MG/DL (NEG)
[2016-11-17 10:23] LABS: CULTURE INDICATED? NO
[2016-11-19 05:06] LABS: HEMATOCRIT 29.6 % (38.0-50.0); HEMOGLOBIN 10.4 gm/dL (13.0-16.0); MEAN CELL VOLUME 91.1 FL (83-96); MEAN CORPUSCULAR HGB CONC 35.1 g/dL (30-36); MEAN PLATELET VOLUME 7.5 FL (6.5-11.5); RED BLOOD COUNT 3.25 X10e (3.90-5.60)
[2016-11-19 05:15] LABS: WHITE BLOOD COUNT 4.2 X10e3 (4.0-10.5)
[2016-11-19 05:49] LABS: ALBUMIN SERUM 3.4 g/dL (3.5-5.0); BILIRUBIN,TOTAL 0.1 mg/dL (0.2-2.0); CALCIUM SERUM 8.7 mg/dL (8.4-10.2); CREATININE SERUM 0.5 mg/dL (0.6-1.4); GLOM FILT RATE Estimated 129.1 mL/min (>60); POTASSIUM 3.9 mmol/L (3.5-5.1); PROTEIN TOTAL SERUM 5.5 g/dL (6.0-8.3)
[2016-11-19] MEDS ORDERED: MAGNESIUM400 M1 PO (13:30)
[2016-11-27] MEDS ORDERED: PERCOCET10 PO ×2 (09:14→09:16)
[2016-12-02] MEDS ORDERED: CARAFATE1 GM PO (12:22)
[2016-12-02] MEDS ORDERED: PROTONIX PO (12:22)
[2016-12-02] MEDS ORDERED: ATIVAN PO (12:22)
== END 2016-11-19 14:13 | disposition home or self-care (01) ==
LOC: CED 14:50 → CEDOF 18:35 → CED 18:35 → C3A PCU 18:35 → CED 21:29 → CEDOF 21:29 → CED 22:15 → CEDOF 22:15 → C3A PCU 23:32 → CEDOF 23:32 → C3A PCU 11-17 06:12
PROVIDERS: Emergency Medicine; Internal Medicine
DX: R11.2 Nausea with vomiting, unspecified (principal); C34.90 Malignant neoplasm of unspecified part of unspecified bronchus or lung; F32.9 Major depressive disorder, single episode, unspecified; K21.9 Gastro-esophageal reflux disease without esophagitis; I42.8 Other cardiomyopathies; G89.4 Chronic pain syndrome; G40.909 Epilepsy, unspecified, not intractable, without status epilepticus; E87.6 Hypokalemia; F17.210 Nicotine dependence, cigarettes, uncomplicated; Z85.01 Personal history of malignant neoplasm of esophagus; Z87.19 Personal history of other diseases of the digestive system; Z91.041 Radiographic dye allergy status; Z79.899 Other long term (current) drug therapy
CPT/HCPCS: 36415; 71010; 80048; 80053; 80076; 81003; 82150; 82553; 82947; 83690; 83735; 83880; 84484; 85025; 85027; 93005; 94760; 96361; 96365; 96366; 96374; 96375; 96376; 99285; C9113; G0378; J1170; J1642; J2270; J2405; J2550